=== PATIENT | male | born 1935 | race Caucasian/White ===

== ENCOUNTER 2016-12-23 09:23 | Day surgery (SDC) ==
[2016-06-22 15:37] VITALS: BMI 26.5
[2016-12-23] MEDS ORDERED: LIDOCAINE 1% 20 ML MDV ID ONE (10:09)
[2016-12-23] MEDS ORDERED: LIDOCAINE 1% 20 ML MDV ONE (10:09)
[2016-12-23] MEDS ORDERED: DIPRIVAN 20 ML VIAL IVP ONE (11:00)
[2016-12-23 12:38] VITALS: BP 138/88; TEMP 97.5
--- NOTE | 2016-12-24 09:48 | OP ---
INDICATIONS FOR PROCEDURE: 81-year-old gentleman presents for colonoscopy. He has a history of adenomatous polyps, last colonoscopy 3 years ago. MEDICATIONS: SEE ANESTHESIA NOTES. PROCEDURE: COLONOSCOPY. REPORT: The risks, benefits, alternatives and limitations were discussed in detail with the patient. Informed consent was obtained. After adequate sedation was achieved, digital rectal exam revealed good tone, no masses. The colonoscope was introduced into the rectum and advanced under direct visual guidance to the cecum. The cecum was identified by the appendiceal orifice and IC valve. I then slowly withdrew the scope in a circumferential manner examining the mucosa quite carefully. I looked on the proximal and distal side of folds and flexures as best as possible. I was able to retroflex the scope in the right colon and left colon to increase visualization. The colonic mucosa is unremarkable its entire length including on retroflex view of the anal canal. There was a small non engorged internal hemorrhoid. The prep was adequate. The withdrawal time was 7 minutes and 22 seconds. The patient tolerated the procedure well with stable vital signs and pulse oximetry throughout. IMPRESSION: 1. UNREMARKABLE COLONOSCOPY EXAM. RECOMMENDATIONS: 1. High fiber diet. 2. Office visit as needed. 3. Given his advanced age and health, I recommend future colonoscopies on an as needed only basis. CC: DR. DAVID HOLLOWAY
== END 2016-12-23 12:59 | disposition home or self-care (01) ==
LOC: SURG 09:23
PROVIDERS: ATTEND Internal Medicine Gastroenterology
DX: Z86.010 Personal history of colon polyps (principal); K64.8 Other hemorrhoids

== ENCOUNTER 2018-11-06 14:55 | Inpatient (IN) | payer OTHER ==
[2018-11-06] MEDS ORDERED: DUONEB NEB STA (15:05)
--- NOTE | 2018-11-06 15:08 | ED.PDOC ---
General ED Provider: Dr. JESSICA BINGHAM Chief Complaint: Shortness of Air Stated Complaint: Patient is an 83 year old male who comes to the ER by ambulance with shortness of breath since yesterday Time Seen by Physician: 15:07 Mode of Arrival: Walk-In Information Source: Patient Exam Limitations: No limitations Primary Care Provider: RICO HERNANDEZ Nursing and Triage Documentation Reviewed and Agree: Yes Does patient meet sepsis criteria?: No System Inflammatory Response Syndrome: Not Applicable Sepsis Protocol: For patient's 13 years and over: Temp is 96.8 and below OR 101 and greater Pulse >90 BPM Resp >20/minute Acutely Altered Mental Status Are patient's symptoms suggestive of a new infection, such as: -Pneumonia -Skin, Soft Tissue -Endocarditis -UTI -Bone, Joint Infection -Implantable Device -Acute Abdominal Infection -Wound Infection -Meningitis -Blood Stream Catheter Infection -Unknown Review of Systems - Review Of Systems Constitutional: Reports: No symptoms Eyes: Reports: No symptoms Ears, Nose, Mouth, Throat: Reports: No symptoms Respiratory: Reports: Cough, Short of air, Wheezing Cardiac: Reports: No symptoms GI: Reports: No symptoms : Reports: No symptoms Musculoskeletal: Reports: No symptoms Skin: Reports: No symptoms Neurological: Reports: Anxiety Endocrine: Reports: No symptoms Hematologic/Lymphatic: Reports: No symptoms All Other Systems: Reviewed and Negative Past Medical History - Past Medical History Previously Healthy: Yes Endocrine: Reports: Dyslipidemia Cardiovascular: Reports: Hypertension Respiratory: Reports: None Hematological: Reports: Anemia Gastrointestinal: Reports: None Genitourinary: Reports: None Neuro/Psych: Reports: Anxiety, Depression Musculoskeletal: Reports: Arthritis, Back Pain Cancer: Reports: None Other Pertinent Past Medical History: Sleep Apnea - Surgical History General Surgical History: Reports: None - Family History Family History: Reports: Unknown - Social History Smoking Status: Never smoker Hx Substance Use: No Alcohol Screening: None - Immunizations Tetanus Shot up to Date: No Physical Exam - Physical Exam Appearance: Ill-appearing Ill-appearing: Moderate Pain Distress: None Eyes: URIAH, EOMI Neck: Supple Respiratory: Crackles, Rhonchi, Wheezes Cardiovascular: RRR, Pulses normal, No rub GI/: Soft, Nontender, No masses Musculoskeletal: Normal strength, ROM intact, Edema (3+ on the lower extremities ) Skin: Warm, Dry, Normal color Neurological: Sensation intact, Motor intact, Alert, Oriented Psychiatric: Anxious Interpretation - Radiology Interpretation Radiology Interpretation By: Radiologist Radiology Results: No acute changes (prominent heart size with Mild central interstitial edema verses interitian pneumonitis) Exam Interpreted: Portable CXR Re-Evaluation - Re-Evaluation Time of Re-Evaluation: 19:41 Status: Improved (breathing better ) Vital Signs Stable: Yes Pain Level: none Appearance: NAD Lungs: Other (Less wheezing and Rhonchi) Skin: Warm and Dry Neuro: Alert and Oriented X3 Physician Notification - Case Discussed Physician Notified: Dr Hernandez Time of Notification: 19:42 (Admit to SCU) Critical Care Note - Critical Care Note Total Time (mins): 45 Course - Course Hematology/Chemistry: 11/06/18 15:15 11/06/18 15:15 Orders, Labs, Meds: Lab Review 11/06/18 11/06/18 11/06/18 15:15 15:15 15:15 WBC 7.92 RBC 4.01 L Hgb 11.2 L Hct 33.9 L MCV 84.5 MCH 27.9 MCHC 33.0 RDW Coeff of Cassi 14.6 Plt Count 178 Immature Gran % (Auto) 0.5 Neut % (Auto) 81.3 Lymph % (Auto) 9.2 L Mcduffie % (Auto) 7.2 Eos % (Auto) 1.0 Baso % (Auto) 0.8 Immature Gran # (Auto) 0.0 Neut # (Auto) 6.4 Lymph # (Auto) 0.7 Mcduffie # (Auto) 0.6 Eos # (Auto) 0.1 Baso # (Auto) 0.1 Puncture Site O2 Saturation ABG pH ABG pCO2 ABG pO2 ABG HCO3 ABG Total CO2 ABG Base Excess Amandeep Test O2 Delivery Device Oxygen Liter Flow FiO2 % Sodium 140.5 Potassium 3.27 L Chloride 102.7 Carbon Dioxide 29.9 Anion Gap 11.17 BUN 14.1 Creatinine 1.77 H Estimated GFR (MDRD) 37.00 BUN/Creatinine Ratio 7.96 Glucose 130.4 H Lactic Acid 1.17 Calcium 8.76 Total Bilirubin 0.81 AST 24.1 ALT 9.7 Alkaline Phosphatase 73.5 Total Creatine Kinase 53.1 L Troponin I 0.012 NT-Pro-B Natriuret Pep Total Protein 6.84 Albumin 4.16 Globulin 2.68 Albumin/Globulin Ratio 1.55 Procalcitonin 11/06/18 11/06/18 11/06/18 15:15 15:15 15:30 WBC RBC Hgb Hct MCV MCH MCHC RDW Coeff of Cassi Plt Count Immature Gran % (Auto) Neut % (Auto) Lymph % (Auto) Mcduffie % (Auto) Eos % (Auto) Baso % (Auto) Immature Gran # (Auto) Neut # (Auto) Lymph # (Auto) Mcduffie # (Auto) Eos # (Auto) Baso # (Auto) Puncture Site R rad O2 Saturation 88.0 L ABG pH 7.356 ABG pCO2 46.4 H ABG pO2 58.0 L* ABG HCO3 26.0 ABG Total CO2 27 ABG Base Excess 0 Amandeep Test + O2 Delivery Device Oxygen Liter Flow FiO2 % 21.0 Sodium Potassium Chloride Carbon Dioxide Anion Gap BUN Creatinine Estimated GFR (MDRD) BUN/Creatinine Ratio Glucose Lactic Acid Calcium Total Bilirubin AST ALT Alkaline Phosphatase Total Creatine Kinase Troponin I NT-Pro-B Natriuret Pep 2920.000 H Total Protein Albumin Globulin Albumin/Globulin Ratio Procalcitonin < 0.05 11/06/18 17:33 WBC RBC Hgb Hct MCV MCH MCHC RDW Coeff of Cassi Plt Count Immature Gran % (Auto) Neut % (Auto) Lymph % (Auto) Mcduffie % (Auto) Eos % (Auto) Baso % (Auto) Immature Gran # (Auto) Neut # (Auto) Lymph # (Auto) Mcduffie # (Auto) Eos # (Auto) Baso # (Auto) Puncture Site Rbrach O2 Saturation 98.0 ABG pH 7.397 ABG pCO2 41.3 ABG pO2 99.0 ABG HCO3 25.4 ABG Total CO2 27 ABG Base Excess 1 Amandeep Test + O2 Delivery Device Nc Oxygen Liter Flow 2.00 FiO2 % 28.0 Sodium Potassium Chloride Carbon Dioxide Anion Gap BUN Creatinine Estimated GFR (MDRD) BUN/Creatinine Ratio Glucose Lactic Acid Calcium Total Bilirubin AST ALT Alkaline Phosphatase Total Creatine Kinase Troponin I NT-Pro-B Natriuret Pep Total Protein Albumin Globulin Albumin/Globulin Ratio Procalcitonin Orders Category Date Time Status ABG DRAW REQUEST Routine CARDIO 11/06/18 17:33 Ordered ABG DRAW REQUEST Stat CARDIO 11/06/18 15:06 Completed EKG-(ED ONLY) Stat CARDIO 11/06/18 15:05 Completed NEBULIZER TREATMENT Stat CARDIO 11/06/18 15:06 Completed OXYGEN Routine CARDIO 11/06/18 19:34 Ordered INTAKE & OUTPUT Q8HR CARE 11/06/18 19:34 Ordered VITAL SIGNS Q4HR CARE 11/06/18 19:35 Ordered 2 GRAM SODIUM DIET DIETARY 11/06/18 Breakfast Ordered ED IV/MEDIPORT/POWERPORT .ONCE EMERGENCY 11/06/18 15:05 Active ABG Stat LAB 11/06/18 15:30 Completed ABG Stat LAB 11/06/18 17:33 Completed BLOOD CULTURE (ED ONLY) Stat LAB 11/06/18 15:15 Received CBC W/ AUTO DIFF DAILY@0600 LAB 11/07/18 06:00 Ordered CBC W/ AUTO DIFF DAILY@0600 LAB 11/08/18 06:00 Ordered CBC W/ AUTO DIFF Stat LAB 11/06/18 15:15 Completed COMPREHENSIVE METABOLIC PANEL DAILY@0600 LAB 11/07/18 06:00 Ordered COMPREHENSIVE METABOLIC PANEL DAILY@0600 LAB 11/08/18 06:00 Ordered COMPREHENSIVE METABOLIC PANEL Stat LAB 11/06/18 15:15 Completed CREATINE KINASE Stat LAB 11/06/18 15:15 Completed LACTIC ACID Stat LAB 11/06/18 15:15 Completed PRO-BNP [NT-PROBNP] Stat LAB 11/06/18 15:15 Completed PROCALCITONIN Stat LAB 11/06/18 15:15 Completed TROPONIN I Stat LAB 11/06/18 15:15 Completed 0.9 % Sodium Chloride [Saline Flush] MEDS 11/06/18 15:05 Ordered 1 syr IVF PRN PRN Acetaminophen [Tylenol Arthritis] MEDS 11/06/18 21:00 Ordered 1,300 mg PO BEDTIME Acetaminophen [Tylenol Arthritis] MEDS 11/07/18 09:00 Ordered 650 mg PO DAILY Amlodipine Besylate [Norvasc] MEDS 11/06/18 21:00 Ordered 5 mg PO BID Aspirin [Aspirin Chewable] MEDS 11/07/18 08:00 Ordered 81 mg PO DAILYWM Bisoprolol Fumarate [Zebeta] MEDS 11/07/18 09:00 Ordered 10 mg PO DAILY Carboxymethylcellulose Sodium [Refresh Plus] MEDS 11/06/18 21:00 Ordered 1 each OP QID Clonidine HCl [Catapres] MEDS 11/06/18 21:00 Ordered 0.3 mg PO BID Clopidogrel Bisulfate [Plavix] MEDS 11/07/18 09:00 Ordered 75 mg PO DAILY Enalaprilat Dihydrate [Vasotec IV] MEDS 11/06/18 17:32 Discontinued 1.25 mg IVP ONCE STA Enoxaparin Sodium [Lovenox] MEDS 11/07/18 09:00 Ordered 30 mg SUBCUT DAILY Ferrous Sulfate [Feosol] MEDS 11/06/18 21:00 Ordered 325 mg PO BID Furosemide [Lasix] MEDS 11/06/18 16:36 Discontinued 40 mg IVP ONCE STA Furosemide [Lasix] MEDS 11/07/18 06:30 Ordered 40 mg IVP QDAC Hydralazine HCl [Apresoline] MEDS 11/06/18 20:00 Ordered 50 mg PO Q12H Hydrocodone Bit/Acetaminophen [Watts 5-325] MEDS 11/06/18 19:37 Ordered 1 tab PO TID PRN Ipratropium/Albuterol Neb [Duoneb] MEDS 11/06/18 15:05 Discontinued 1 vial NEB ONCE STA Lovastatin [Lovastatin] MEDS 11/07/18 09:00 Ordered 20 mg PO DAILY Multivit-Minerals/FA/Lycopene [Men's Daily Formula MEDS 11/07/18 09:00 Ordered Capsule] 1 each PO DAILY Ondansetron HCl/Pf [Zofran 4 mg/2 ml] MEDS 11/06/18 19:34 Ordered 4 mg IVP Q6H PRN Potassium Chloride [Klor-Con 10] MEDS 11/07/18 09:00 Ordered 20 meq PO DAILY Sertraline HCl [Zoloft] MEDS 11/07/18 09:00 Ordered 150 mg PO DAILY Tamsulosin HCl [Flomax] MEDS 11/07/18 09:00 Ordered 0.4 mg PO DAILY Valsartan [Diovan] MEDS 11/06/18 21:00 Ordered 160 mg PO BID RESUSCITATION STATUS Routine OTHERS 11/06/18 19:34 Ordered CHEST, 1V AP ONLY Stat RADS 11/06/18 15:05 Completed Medications Generic Name Dose Route Start Last Admin Trade Name Freq PRN Reason Stop Dose Admin Hydrocodone Bitart/Acetaminophen 1 tab 11/06/18 19:37 Watts 5-325 PO TID PRN severe pain Amlodipine Besylate 5 mg 11/06/18 21:00 Norvasc PO BID GAYATRI Aspirin 81 mg 11/07/18 08:00 Aspirin Chewable PO DAILYWM [facility] Clopidogrel Bisulfate 75 mg 11/07/18 09:00 Plavix PO DAILY [facility] Enoxaparin Sodium 30 mg 11/07/18 09:00 Lovenox SUBCUT DAILY [facility] Furosemide 40 mg 11/07/18 06:30 Lasix IVP QDAC [facility] Hydralazine HCl 50 mg 11/06/18 20:00 Apresoline PO Q12H [facility] Non-Formulary Medication 650 mg 11/07/18 09:00 Acetaminophen [Tylenol Arthritis] PO DAILY [facility] Non-Formulary Medication 1,300 mg 11/06/18 21:00 Acetaminophen [Tylenol Arthritis] PO BEDTIME [facility] Non-Formulary Medication 10 mg 11/07/18 09:00 Bisoprolol Fumarate [Zebeta] PO DAILY [facility] Non-Formulary Medication 1 each 11/06/18 21:00 Carboxymethylcellulose Sodium [Refresh Plus] OP QID [facility] Non-Formulary Medication 0.3 mg 11/06/18 21:00 Clonidine Hcl [Catapres] PO BID [facility] Non-Formulary Medication 20 mg 11/07/18 09:00 Lovastatin [Lovastatin] PO DAILY [facility] Non-Formulary Medication 1 each 11/07/18 09:00 Multivit-Minerals/Fa/Lycopene [Men's Daily Formula Capsule] PO DAILY [facility] Non-Formulary Medication 150 mg 11/07/18 09:00 Sertraline Hcl [Zoloft] PO DAILY [facility] Non-Formulary Medication 325 mg 11/06/18 21:00 Ferrous Sulfate [Feosol] PO BID [facility] Non-Formulary Medication 20 meq 11/07/18 09:00 Potassium Chloride [Klor-Con 10] PO DAILY [facility] Ondansetron HCl 4 mg 11/06/18 19:34 Zofran 4 Mg/2 Ml IVP Q6H PRN Nausea / Vomiting Sodium Chloride 1 syr 11/06/18 15:05 Saline Flush IVF PRN PRN To flush IV Tamsulosin HCl 0.4 mg 11/07/18 09:00 Flomax PO DAILY [facility] Valsartan 160 mg 11/06/18 21:00 Diovan PO BID [facility] Discontinued Medications Generic Name Dose Route Start Last Admin Trade Name Freq PRN Reason Stop Dose Admin Albuterol/Ipratropium 1 vial 11/06/18 15:05 11/06/18 15:30 Duoneb NEB 11/06/18 15:06 1 vial ONCE STA Administration Enalaprilat 1.25 mg 11/06/18 17:32 11/06/18 17:56 Vasotec Iv IVP 11/06/18 17:33 1.25 mg ONCE STA Administration Furosemide 40 mg 11/06/18 16:36 11/06/18 17:34 Lasix IVP 11/06/18 16:37 40 mg ONCE STA Administration Vital Signs: Temp Pulse Resp BP Pulse Ox 11/06/18 14:56 99.0 F 72 20 240/105 H 89 L Departure - Departure Time of Disposition: 19:42 Disposition: ADMITTED INPATIENT Discharge Problem: Hypertensive urgency CHF exacerbation Qualifiers: Heart failure type: systolic Qualified Code(s): I50.23 - Acute on chronic systolic (congestive) heart failure Condition: Fair Pt referred to PMD for follow-up: Yes IPMP verified?: No Allergies/Adverse Reactions: Allergies Latex, Natural Rubber Adverse Reaction (Verified 11/06/18 14:59) Rash States he "gets a rash." Home Medications: Ambulatory Orders Aspirin [Aspirin Chewable] 81 mg PO DAILYWM 09/20/13 Bisoprolol Fumarate [Zebeta] 10 mg PO DAILY 09/20/13 Clonidine HCl [Catapres] 0.3 mg PO BID 09/20/13 Ferrous Sulfate [Feosol] 325 mg PO BID 09/20/13 Furosemide [Lasix Tab] 40 mg PO DAILY 09/20/13 Lovastatin 20 mg PO DAILY 09/20/13 Multivit-Minerals/FA/Lycopene [Men's Daily Formula Capsule] 1 each PO DAILY Potassium Chloride [Klor-Con 10] 10 meq PO DAILY 09/20/13 Tamsulosin HCl [Flomax] 0.4 mg PO DAILY 09/20/13 Acetaminophen [Tylenol Arthritis] 1,300 mg PO BEDTIME 04/28/16 Acetaminophen [Tylenol Arthritis] 650 mg PO DAILY 04/28/16 Carboxymethylcellulose Sodium [Refresh Plus] 1 each OP QID 04/28/16 Hydrocodone/Acetaminophen [Watts 5-325 Tablet] 1 tab PO TID PRN 04/28/16 Clopidogrel Bisulfate [Plavix] 75 mg PO DAILY #30 tablet 04/30/16 Amlodipine Besylate [Norvasc] 5 mg PO BID #60 tablet 06/27/16 Hydralazine HCl [Apresoline] 50 mg PO Q12H #60 tablet 06/27/16 Sertraline HCl [Zoloft] 150 mg PO DAILY #30 tablet 06/27/16 Valsartan [Diovan] 160 mg PO BID #60 tablet 06/27/16 Enoxaparin Sodium [Lovenox] 30 mg SQ DAILY 12/23/16 Disposition Discussed With: Patient, Family
--- NOTE | 2018-11-06 16:08 | DI ---
EXAM: CHEST FRONTAL VIEW HISTORY: Cough and shortness of breath. COMPARISON: 04/28/2016 FINDINGS: Prominent heart size is stable. There is central interstitial infiltrate and congestion. No lobar consolidation, visible fluid or pneumothorax. IMPRESSION: 1. Prominent heart size with mild central interstitial edema versus interstitial pneumonitis. Corre late clinically.
[2018-11-06] MEDS ORDERED: LASIX IVP STA (16:36)
[2018-11-06] MEDS ORDERED: VASOTEC IV IVP STA (17:32)
[2018-11-06] MEDS ORDERED: ZOFRAN 4 MG/2 ML IVP PRN (19:34)
[2018-11-06] MEDS ORDERED: NORCO 5-325 PO PRN (19:37)
[2018-11-06] MEDS ORDERED: APRESOLINE PO SCH (20:00)
[2018-11-06 20:54] VITALS: BMI 30.9
[2018-11-06] MEDS ORDERED: NON-FORMULARY MEDICATION (Ferrous Sulfate [Feosol] 325 MG) PO SCH (21:00)
[2018-11-06] MEDS ORDERED: ACETAMINOPHEN 1300 MG PO SCH (21:00)
[2018-11-06] MEDS ORDERED: CLONIDINE HCL 0.3 MG PO SCH (21:00)
[2018-11-06] MEDS ORDERED: CARBOXYMETHYLCELLULOSE SODIUM OP SCH (21:00)
[2018-11-06] MEDS ORDERED: CATAPRES ONE (22:34)
[2018-11-06] MEDS: DIOVAN PO SCH (23:07)
[2018-11-06] MEDS: NORVASC PO SCH (23:07)
[2018-11-07] MEDS: LASIX IVP SCH (06:22)
[2018-11-07] MEDS ORDERED: LASIX IVP SCH (06:30)
[2018-11-07] MEDS ORDERED: K-DUR PO SCH (08:00)
[2018-11-07] MEDS: ARTIFICIAL TEARS OPTH SOL OP SCH ×4 (08:52→21:19)
[2018-11-07] MEDS: NORVASC PO SCH (08:53)
[2018-11-07] MEDS: ASPIRIN CHEWABLE PO SCH (08:53)
[2018-11-07] MEDS: DIOVAN PO SCH ×2 (08:53→21:18)
[2018-11-07] MEDS: FLOMAX PO SCH (08:53)
[2018-11-07] MEDS: ZEBETA PO SCH (08:53)
[2018-11-07] MEDS: MEVACOR PO SCH (08:54)
[2018-11-07] MEDS: FERROUS SULFATE PO SCH ×2 (08:54→21:18)
[2018-11-07] MEDS: PLAVIX PO SCH (08:54)
[2018-11-07] MEDS: TYLENOL PO SCH ×2 (08:54→21:18)
[2018-11-07] MEDS: MULTIVITAMIN TABLET PO SCH (08:55)
[2018-11-07] MEDS: LOVENOX SUBCUT SCH (08:55)
[2018-11-07] MEDS ORDERED: LYCOPENE PO SCH (09:00)
[2018-11-07] MEDS ORDERED: LOVENOX SUBCUT SCH (09:00)
[2018-11-07] MEDS ORDERED: NON-FORMULARY MEDICATION (Potassium Chloride [Klor-Con 10] 20 MEQ) PO SCH (09:00)
[2018-11-07] MEDS ORDERED: ZOLOFT PO SCH (09:00)
[2018-11-07] MEDS ORDERED: MULTIVIT MINERALS PO SCH (09:00)
[2018-11-07] MEDS ORDERED: CATAPRES PO SCH (09:00)
[2018-11-07] MEDS ORDERED: [UNRECOGNIZED DRUG - OTHER] PO SCH (09:00)
[2018-11-07] MEDS ORDERED: NON-FORMULARY MEDICATION (Potassium Chloride [Klor-Con 10] 10 MEQ) PO SCH (09:00)
[2018-11-07] MEDS ORDERED: APRESOLINE PO SCH (09:00)
[2018-11-07] MEDS ORDERED: NON-FORMULARY MEDICATION (Acetaminophen [Tylenol Arthritis] 650 MG) PO SCH (09:00)
[2018-11-07] MEDS ORDERED: LOVASTATIN 20 MG PO SCH (09:00)
[2018-11-07] MEDS ORDERED: BISOPROLOL FUMARATE 10 MG PO SCH (09:00)
[2018-11-07] MEDS ORDERED: NON-FORMULARY MEDICATION (Sertraline Hcl [Zoloft] 150 MG) PO SCH (09:00)
[2018-11-07] MEDS: K-DUR PO SCH ×2 (09:39→17:41)
[2018-11-07] MEDS ORDERED: NON-FORMULARY MEDICATION (Cetirizine Hcl [Zyrtec] 10 MG) PO PRN (12:43)
[2018-11-07] MEDS ORDERED: CARBOXYMETHYLCELLULOSE SODIUM OP PRN (12:43)
[2018-11-07] MEDS ORDERED: VASOTEC IV IVP STA (18:20)
[2018-11-07] MEDS ORDERED: MINOXIDIL PO STA (18:21)
[2018-11-07] MEDS ORDERED: OMEGA-3 FISH OIL ONE (20:53)
[2018-11-07] MEDS ORDERED: NON-FORMULARY MEDICATION (Omega-3 Fatty Acids/Fish Oil [Fish Oil 1,000 Mg Capsule] 1,000 M PO SCH (21:00)
[2018-11-07] MEDS: CATAPRES PO SCH (21:17)
[2018-11-07] MEDS: MINOXIDIL PO SCH (21:18)
[2018-11-08] MEDS ORDERED: NORVASC ONE (00:58)
[2018-11-08] MEDS ORDERED: MORPHINE 4 MG/ML VIAL ONE (00:59)
[2018-11-08] MEDS ORDERED: LASIX ONE (00:59)
[2018-11-08] MEDS: LASIX IVP STA ×2 (01:00→01:03)
[2018-11-08] MEDS ORDERED: DUONEB NEB STA (01:00)
[2018-11-08] MEDS: MORPHINE 4 MG/ML SYRINGE IVP STA ×2 (01:03)
[2018-11-08] MEDS ORDERED: VASOTEC IV IVP STA ×2 (01:03→01:56)
[2018-11-08] MEDS ORDERED: NORVASC PO STA ×2 (01:05)
[2018-11-08] MEDS ORDERED: MORPHINE 2 MG/ML SYRINGE ONE ×2 (01:30→02:13)
[2018-11-08] MEDS: CARDENE-NACL 20 MG/200 ML SOLN 20 MG in PREMIX 200ML 0.86% SODIUM CHLORIDE 1 BAG IV SCH ×5 (01:40→18:44)
[2018-11-08] MEDS ORDERED: CARDENE-NACL 20 MG/200 ML SOLN 200 ML IV ONE ×4 (01:42→13:56)
[2018-11-08] MEDS ORDERED: SOLU-CORTEF 250 MG IVP STA ×2 (01:42)
[2018-11-08] MEDS ORDERED: SOLU-CORTEF 250 MG ONE (01:51)
[2018-11-08] MEDS ORDERED: MORPHINE 2 MG/ML SYRINGE IVP STA (02:08)
--- NOTE | 2018-11-08 03:04 | ED.PDOC ---
Procedures - IV/Art Line Insertion Location: lt radial Type of Line: Arterial Line Invasive Line/IV Catheter Gauge: 22 Number of Attempts: 1 Blood Return Positive: Yes Invasive Line/IV Flushes Without Difficulty: Yes (art line for invasive press) Conscious Sedation - Pre-op Assessment Weight: 201 lb 8.04 oz Surgical History: NO - Medical History Past Medical History: Hypertension, High Lipids Other History: SLEEP APNEA - Physical Exam Heart Rate/Rhythm: Regular Rhythm
[2018-11-08] MEDS ORDERED: DUONEB NEB SCH (06:00)
[2018-11-08] MEDS ORDERED: CLARITIN PO PRN (07:08)
[2018-11-08] MEDS ORDERED: ARTIFICIAL TEARS OPTH SOL OP PRN (07:10)
[2018-11-08] MEDS: LASIX IVP SCH (07:11)
[2018-11-08] MEDS ORDERED: ROCEPHIN 1 GM in SODIUM CHLORIDE 50 ML IV STA (08:28)
[2018-11-08] MEDS ORDERED: NON-FORMULARY MEDICATION (Sertraline Hcl [Zoloft] 200 MG) PO SCH (09:00)
[2018-11-08] MEDS ORDERED: NON-FORMULARY MEDICATION (Cholecalciferol (Vitamin D3) [Vitamin D3] 2,000 UNITS) PO SCH (09:00)
[2018-11-08] MEDS: ZOLOFT PO SCH (09:58)
[2018-11-08] MEDS: K-DUR PO SCH ×2 (09:59→18:46)
[2018-11-08] MEDS: ASPIRIN CHEWABLE PO SCH (09:59)
[2018-11-08] MEDS: ZEBETA PO SCH (09:59)
[2018-11-08] MEDS: VITAMIN D PO SCH (09:59)
[2018-11-08] MEDS: PLAVIX PO SCH (09:59)
[2018-11-08] MEDS: CATAPRES PO SCH ×2 (09:59→21:04)
[2018-11-08] MEDS: MEVACOR PO SCH (09:59)
[2018-11-08] MEDS: TYLENOL PO SCH ×2 (09:59→21:04)
[2018-11-08] MEDS: APRESOLINE PO SCH (10:00)
[2018-11-08] MEDS: FERROUS SULFATE PO SCH ×2 (10:00→21:05)
[2018-11-08] MEDS: MINOXIDIL PO SCH ×2 (10:00→21:04)
[2018-11-08] MEDS ORDERED: LASIX IVP ONE (10:00)
[2018-11-08] MEDS: MULTIVITAMIN TABLET PO SCH (10:00)
[2018-11-08] MEDS: DIOVAN PO SCH ×2 (10:00→21:03)
[2018-11-08] MEDS: FLOMAX PO SCH (10:00)
[2018-11-08] MEDS: LOVENOX SUBCUT SCH (10:01)
[2018-11-08] MEDS: SOLU-MEDROL 125 MG IVP SCH ×3 (10:01→21:02)
[2018-11-08] MEDS: ARTIFICIAL TEARS OPTH SOL OP SCH ×4 (10:02→21:05)
--- NOTE | 2018-11-08 10:33 | PCM.PROG ---
Attending Provider: ATTENDING PROVIDER: Dr. RICO HERNANDEZ This patient is seen with Karyn Del Castillo, Nurse Practitioner. DATE OF SERVICE: 11/08/18 SUBJECTIVE: This 83 year old WHITE/ M was hospitalized 11/06/18. The patient is lying in bed. He is currently wearing BIPAP, in no acute distress. He is alert and oriented. He had episode this morning of unresponsiveness, shortness of breath, severe hypertension. REVIEW OF SYSTEMS: CONSTITUTIONAL: Weakness. No night sweats. No fatigue, malaise, lethargy. No fever or chills. HEENT: Eyes: No visual changes. No eye pain. No eye discharge. ENT: No runny nose. No epistaxis. No sinus pain. No odynophagia. No congestion. RESPIRATORY: Positive for cough, rhonchi and shortness of breath. No hemoptysis. No shortness of breath. CARDIOVASCULAR: No angina symptoms. No CHF symptoms. No atypical chest pain for CAD. No palpitations. No orthopnea.. GASTROINTESTINAL: Abdominal distention. No abdominal pain. No nausea or vomiting. No diarrhea or constipation. No hematemesis. No hematochezia. GENITOURINARY: Catheter in place. No urgency. No frequency. No dysuria. No hematuria. No obstructive symptoms. No discharge. No pain. No significant abnormal bleeding. MUSCULOSKELETAL: No musculoskeletal pain; no joint swelling. NEUROLOGICAL: Awake, alert, oriented to time, place and person. No headache. No neck pain. No syncope. No seizures. No dizziness. PSYCHIATRIC: Not anxious. No depression. No suicidal thoughts. No homicidal thoughts. SKIN: No rash. No lesions. No wounds. ENDOCRINE: No unexplained weight loss. No weight gain. HEMATOLOGIC/LYMPHATIC: No anemia. No purpura. No petechiae. No prolonged or excessive bleeding. No palpable lymph nodes. PHYSICAL EXAMINATION: GENERAL: The patient is awake, alert and oriented, lying/sitting in bed in no distress. VITAL SIGNS: Temperature 98.4 F, Pulse 69, Respiratory Rate 22, BP 186/77, Pulse Ox 97% HEENT: Head normocephalic, atraumatic. Eyes: Extraocular muscles are intact. Pupils are equal, round and reactive to light and accommodation. Ears: No lesions. Nose appeared normal. Throat: No exudate or erythema. NECK: Supple. No JVD, no carotid bruit. No lymphadenopathy or thyromegaly. LUNGS: Diminished breath sounds with bilateral rhonchi. Percussion note normal. Chest symmetrical. HEART: S1, S2, no S3. No murmurs. No cyanosis or clubbing. No ascites. Pulses: Dorsalis pedis and posterior tibial pulses +1 to +2 both sides. ABDOMEN: Abdominal distention, tympnaic. Non-tender. Bowel sounds active. No CVA tenderness. No mass felt. EXTREMITIES: Trace bilateral lower extremity edema. Full range of motion of all extremities, equal. NEUROLOGIC: No focal deficit. Cranial nerves II through XII are grossly intact. No headache, no double vision or headache. SKIN: Not dry. Intact. Turgor-normal. LYMPHATIC: No palpable lymph nodes/no lymphedema. MUSCULOSKELETAL: Normal joints with no swelling. Muscle tone is normal. LAB REVIEW: 11/08/18 04:30 11/08/18 04:30 11/08/18 04:30: Sodium 142.3, Potassium 3.75, Chloride 103.8, Carbon Dioxide 28.0, Anion Gap 14.25, BUN 17.2, Creatinine 2.40 H D, Estimated GFR (MDRD) 26.00 , BUN/Creatinine Ratio 7.16, Glucose 199.0 H D, Calcium 8.48, Total Bilirubin 0.62, AST 41.7, ALT 15.8, Alkaline Phosphatase 83.1, Total Protein 7.25, Albumin 4.38, Globulin 2.87, Albumin/Globulin Ratio 1.52 11/08/18 04:30: WBC 21.05 H D, RBC 4.25 L, Hgb 11.6 L, Hct 37.2 L D, MCV 87.5, MCH 27.3, MCHC 31.2 L, RDW Coeff of Cassi 14.7, Plt Count 294 D, Immature Gran % (Auto) 1.5, Neut % (Auto) 82.0, Lymph % (Auto) 4.0 L, Gaines % (Auto) 11.9 H, Eos % (Auto) 0.1, Baso % (Auto) 0.5, Immature Gran # (Auto) 0.3, Neut # (Auto) 17.3 H, Lymph # (Auto) 0.9, Gaines # (Auto) 2.5 H, Eos # (Auto) 0.0, Baso # (Auto) 0.1 01/07/19 02:23: Puncture Site Art line, O2 Saturation 90.0 L, ABG pH 7.152 L*, ABG pCO2 78.3 H, ABG pO2 78.0 L, ABG HCO3 27.4 H, ABG Total CO2 30 H, ABG Base Excess -1, Amandeep Test +, O2 Delivery Device Bipap, FiO2 % 70.0 11/08/18 01:14: Puncture Site Art line, O2 Saturation 89.0 L, ABG pH 6.993 L*, ABG pCO2 121.9 H, ABG pO2 89.0, ABG HCO3 29.6 H, ABG Total CO2 33 H, ABG Base Excess -2, Amandeep Test +, O2 Delivery Device Nrb, Oxygen Liter Flow 15.00, FiO2 % 100.0 11/08/18 01:00: Puncture Site Lbrach, O2 Saturation 93.0 L, ABG pH 7.021 L*, ABG pCO2 111.5 H, ABG pO2 102.0 H, ABG HCO3 28.9 H, ABG Total CO2 32 H, ABG Base Excess -2, Amandeep Test +, O2 Delivery Device Venti, Oxygen Liter Flow 10.00 , FiO2 % 40.0 ASSESSMENT: 1. ACUTE RESPIRATORY FAILURE 2. ACUTE CHF 3. PNEUMONITIS 4. ACUTE ON CHRONIC KIDNEY DISEASE 5. HYPERTENSION PLAN: 1. Continue Cardene drip - goal blood pressure less than 160/90 2. UA 3. D/C Duoneb 4. Xopenex t.i.d. 5. Chest x-ray, abdominal x-ray 6. IV Solu-Cortef 125 mg now and then q8hr Plan and coordination of the patient's care discussed in the presence of [employer] Offbearer and nurse. CONDITION: Stable SCRIBED BY: Jaison QUINTANILLAist scribed while in presence of service performed by Dr. Hernandez/Karyn Del Castillo, KATHI on 11/08/18 ([id number])
--- NOTE | 2018-11-08 11:16 | DI ---
Exam: Single view of the chest. Comparison: 11/06/2018. Reason for exam: Short of breath. FINDINGS: Similar appearing patchy airspace opacities in the lung bases. The cardiac silhouette rem ains mildly prominent in size. No pneumothorax is seen. Impression: Similar appearing prominence of the interstitial lung markings. Imaging findings can be seen with in flammation and infection. Persistent cardiomegaly.
--- NOTE | 2018-11-08 11:46 | DI ---
Exam: Single view of the abdomen. Comparison: CT abdomen pelvis performed 08/05/2009. Reason for exam: Distension. FINDINGS: Nonspecific, nonobstructive bowel gas pattern with a large amount of stool seen in the mayito cending colon and rectosigmoid. The imaged osseous structures are not well evaluated secondary to korin dy habitus and technique. Impression: Limited evaluation secondary to technique and body habitus with a large stool burden sug gesting constipation/impaction.
--- NOTE | 2018-11-08 14:10 | ECHO2D ---
Date of Exam: 11/08/17 Ordering Physician: DR. RICO HERNANDEZ Room #: [id number] Reason for Echo: CHF M-Mode Normal Adult Results LV Dimensions Normal Adult Results AoV Opening excursions >1.6 >1.6 LVEDD-base- 3.5-5.8 4.7 Ao root dimensions 2.0-3.7 3.3 LVESD-base- 3.1-4.6 L. Atrium dimensions 1.9-3.8 3.6 Post. Wall thickness 0.8-1.1 1.1 IV septum (thickness) 0.7-1.2 1.2 Post. Wall excursion 0.72-1.3 NORMAL Septal motion NORMAL Systolic motion R. Ventricular cavity 1.5-2.0 3.0 LVEF 60% Paradoxical septal wall motion NORMAL 2-D : RIGHT VENTRICLE CAVITY ENLARGEMENT, NORMAL LEFT VENTRICULAR CONTRACTILITY- -NO EFFUSION, NO THROMBUS, NORMAL VALVES M-MODE: MV: NORMAL AV: NORMAL TV: NORMAL PV: CHAMBER SIZE: ENLARGED RIGHT VENTRICLE CAVITY WALL MOTION: NORMAL PERICARDIUM: NORMAL INTERPRETATION: 1. DIFFICULT STUDY (RESTLESS/ON BIPAP/ RESPIRATORY DISTRESS) 2. BORDERLINE LEFT VENTRICULAR HYPERTROPHY 3. ENLARGED RIGHT VENTRICLE CAVITY 4. NORMAL LEFT VENTRICULAR CONTRACTILITY 5. NORMAL VALVES MTDD
[2018-11-08] MEDS: XOPENEX 1.25 MG NEB SCH ×2 (14:35→19:50)
--- NOTE | 2018-11-08 19:54 | ED.PDOC ---
Procedures - IV/Art Line Insertion Location: Rt wrist Type of Line: Peripheral IV Invasive Line/IV Catheter Gauge: 22 Number of Attempts: 1 (art line flat waveform , unable to flush , inaccurate readings) Blood Return Positive: Yes Invasive Line/IV Flushes Without Difficulty: Yes (also reposition art line to get waveform and accurate BP, flushes well) Conscious Sedation - Pre-op Assessment Weight: 201 lb Surgical History: NO - Medical History Past Medical History: Hypertension, High Lipids Other History: SLEEP APNEA - Physical Exam Heart Rate/Rhythm: Regular Rhythm
[2018-11-08] MEDS: OMEGA-3 FISH OIL PO SCH (21:05)
[2018-11-09] MEDS: CARDENE-NACL 20 MG/200 ML SOLN 20 MG in PREMIX 200ML 0.86% SODIUM CHLORIDE 1 BAG IV SCH ×6 (00:19→22:37)
[2018-11-09] MEDS: XOPENEX 1.25 MG NEB SCH ×3 (04:44→23:21)
[2018-11-09] MEDS: LASIX IVP SCH (05:34)
[2018-11-09] MEDS: SOLU-MEDROL 125 MG IVP SCH ×3 (05:34→22:36)
[2018-11-09] MEDS: CATAPRES PO SCH ×2 (09:20→22:36)
[2018-11-09] MEDS: ZOLOFT PO SCH (09:20)
[2018-11-09] MEDS: ROCEPHIN 1 GM in SODIUM CHLORIDE 50 ML IV SCH (09:20)
[2018-11-09] MEDS: FERROUS SULFATE PO SCH ×2 (09:21→22:36)
[2018-11-09] MEDS: MINOXIDIL PO SCH ×2 (09:21→22:36)
[2018-11-09] MEDS: APRESOLINE PO SCH (09:21)
[2018-11-09] MEDS: FLOMAX PO SCH (09:22)
[2018-11-09] MEDS: ZEBETA PO SCH (09:22)
[2018-11-09] MEDS: DIOVAN PO SCH ×2 (09:22→22:36)
[2018-11-09] MEDS: VITAMIN D PO SCH (09:23)
[2018-11-09] MEDS: TYLENOL PO SCH ×2 (09:23→22:35)
[2018-11-09] MEDS: MEVACOR PO SCH (09:23)
[2018-11-09] MEDS: MULTIVITAMIN TABLET PO SCH (09:24)
[2018-11-09] MEDS: K-DUR PO SCH ×2 (09:24→19:11)
[2018-11-09] MEDS: ASPIRIN CHEWABLE PO SCH (09:24)
[2018-11-09] MEDS: ARTIFICIAL TEARS OPTH SOL OP SCH ×4 (09:24→22:37)
[2018-11-09] MEDS: PLAVIX PO SCH (09:25)
[2018-11-09] MEDS: LOVENOX SUBCUT SCH (09:25)
[2018-11-09] MEDS ORDERED: ALBUTEROL 0.083% NEB NEB STA (09:43)
[2018-11-09] MEDS ORDERED: MILK OF MAGNESIA PO STA (09:48)
[2018-11-09] MEDS ORDERED: DULCOLAX RC STA (09:48)
--- NOTE | 2018-11-09 10:02 | PCM.PROG ---
Attending Provider: ATTENDING PROVIDER: Dr. RICO HERNANDEZ DATE OF SERVICE: 11/09/18 SUBJECTIVE: This 83 year old WHITE/ M was hospitalized 11/06/18 with acute CHF, severe hypertension. The patient's condition has improved remarkably. He is feeling better, talkative and oriented times four. REVIEW OF SYSTEMS: CONSTITUTIONAL: No night sweats. No fatigue, malaise, lethargy. No fever or chills. HEENT: Eyes: No visual changes. No eye pain. No eye discharge. ENT: No runny nose. No epistaxis. No sinus pain. No odynophagia. No congestion. RESPIRATORY: No cough, no congestion. No hemoptysis. No shortness of breath. CARDIOVASCULAR: No angina symptoms. No CHF symptoms. No atypical chest pain for CAD. No palpitations. No orthopnea.. GASTROINTESTINAL: No abdominal pain. No nausea or vomiting. No diarrhea or constipation. No hematemesis. No hematochezia. GENITOURINARY: No urgency. No frequency. No dysuria. No hematuria. No obstructive symptoms. No discharge. No pain. No significant abnormal bleeding. MUSCULOSKELETAL: No musculoskeletal pain; no joint swelling. NEUROLOGICAL: Awake, alert, oriented to time, place and person. No headache. No neck pain. No syncope. No seizures. No dizziness. PSYCHIATRIC: Not anxious. No depression. No suicidal thoughts. No homicidal thoughts. SKIN: No rash. No lesions. No wounds. ENDOCRINE: No unexplained weight loss. No weight gain. HEMATOLOGIC/LYMPHATIC: No anemia. No purpura. No petechiae. No prolonged or excessive bleeding. No palpable lymph nodes. PHYSICAL EXAMINATION: GENERAL: The patient is awake, alert and oriented, lying in bed in no distress. VITAL SIGNS: Temperature 98.5 F, Pulse 66, Respiratory Rate 22, BP 124/59, Pulse Ox 94% HEENT: Head normocephalic, atraumatic. Eyes: Extraocular muscles are intact. Pupils are equal, round and reactive to light and accommodation. Ears: No lesions. Nose appeared normal. Throat: No exudate or erythema. NECK: Supple. No JVD, no carotid bruit. No lymphadenopathy or thyromegaly. LUNGS: Decreased breath sounds, few creps at the bases. No ascites. Percussion note normal. Chest symmetrical. HEART: S1, S2, no S3. No murmurs. No cyanosis or clubbing. No ascites. Pulses: Dorsalis pedis and posterior tibial pulses +1 to +2 both sides. ABDOMEN: Soft. Non-tender. Bowel sounds active. No CVA tenderness. No mass felt. EXTREMITIES: 1+ pitting edema, better than before. Full range of motion of all extremities, equal. NEUROLOGIC: No focal deficit. Cranial nerves II through XII are grossly intact. No headache, no double vision or headache. SKIN: Warm and dry. Intact. Turgor-normal. LYMPHATIC: No palpable lymph nodes/no lymphedema. MUSCULOSKELETAL: Normal joints with no swelling. Muscle tone is normal. LAB REVIEW: 11/09/18 04:20 11/09/18 04:20 11/09/18 07:00: Puncture Site R rad, O2 Saturation 96.0, ABG pH 7.386, ABG pCO2 43.0, ABG pO2 85.0, ABG HCO3 25.8, ABG Total CO2 27, ABG Base Excess 1, Amandeep Test +, O2 Delivery Device Bipap, FiO2 % 35.0 11/09/18 04:20: Sodium 140.8, Potassium 3.55, Chloride 104.2, Carbon Dioxide 30.2 H, Anion Gap 9.95, BUN 33.3 H, Creatinine 3.02 H D, Estimated GFR (MDRD) 20.00, BUN/Creatinine Ratio 11.02, Glucose 170.7 H, Calcium 8.43, Total Bilirubin 0.44, AST 36.0, ALT 10.6, Alkaline Phosphatase 54.4 L D, Total Protein 5.76 L, Albumin 3.24 L, Globulin 2.52, Albumin/Globulin Ratio 1.28 11/09/18 04:20: WBC 11.08 H D, RBC 3.23 L, Hgb 8.9 L, Hct 27.4 L D, MCV 84.8, MCH 27.6, MCHC 32.5, RDW Coeff of Cassi 14.9 H, Plt Count 164 D, Immature Gran % (Auto) 0.9, Neut % (Auto) 93.4, Lymph % (Auto) 3.3 L, [place] % (Auto) 2.3, Eos % ( Auto) 0.0, Baso % (Auto) 0.1, Immature Gran # (Auto) 0.1, Neut # (Auto) 10.3 H, Lymph # (Auto) 0.4 L, [place] # (Auto) 0.3 L, Eos # (Auto) 0.0, Baso # (Auto) 0.0 11/08/18 14:05: Puncture Site Art line, O2 Saturation 88.0 L, ABG pH 7.331 L, ABG pCO2 47.1 H, ABG pO2 59.0 L*, ABG HCO3 24.9, ABG Total CO2 26, ABG Base Excess -1, Amandeep Test +, O2 Delivery Device Nc, Oxygen Liter Flow 3.00 11/08/18 09:55: Urine Color Yellow, Urine Clarity Slightly, Urine pH 5.0, Ur Specific [place] 1.020, Urine Protein 3+, Urine Glucose (UA) Negative, Urine Ketones Negative, Urine Blood 3+, Urine Nitrite Negative, Urine Bilirubin 1+, Urine Urobilinogen 0.2, Ur Leukocyte Esterase 1+, Urine Microscopic RBC 20-30, Urine Microscopic WBC 5-10, Ur Squamous Epith Cells 2-5, Amorphous Sediment 2+, Urine Bacteria 2+, Granular Casts 2-5 11/08/18 08:35: Puncture Site Art line, O2 Saturation 98.0, ABG pH 7.305 L, ABG pCO2 53.4 H, ABG pO2 121.0 H, ABG HCO3 26.6 H, ABG Total CO2 28, ABG Base Excess 0, Amandeep Test +, O2 Delivery Device Bipap, FiO2 % 70.0 ASSESSMENT: 1. Acute CHF/acute respiratory failure/severe hypertension, all under control. 2. The patient's problem is he has has acute renal failure and chronic kidney disease from aggressive diuretic therapy; also from severe hypertension. 3. Status post CVA. 4. Severe anemia. PLAN: 1. ABGs today pH 7.36, p02 85, pc02 43, 96% saturation on 35% BIPAP. At present time he is on 3L of cannula. Condition has improved remarkably. 2. Will give slow IV fluids, watch for fluid overload. 3. Will give Fleet enema and MOM p.o. 4. Regular diet. 5. 50 cc IV fluid D5 1/2 NS per hour with 40 mEq KCL. Plan and coordination of the patient's care discussed in the presence of Air Conditioning Unit Assembler and nurse. CONDITION: Stable SCRIBED BY: JULISSA OVIEDO, Manager Category scribed while in presence of service performed by Dr. RICO HERNANDEZ on 11/09/18 ([id number])
[2018-11-09] MEDS ORDERED: MILK OF MAGNESIA ONE (19:02)
[2018-11-09] MEDS: OMEGA-3 FISH OIL PO SCH (22:36)
[2018-11-10] MEDS: D5%-1/2NS-KCL 40 MEQ/L IV SOL 1,000 ML IV SCH ×3 (02:09→19:06)
[2018-11-10] MEDS: CARDENE-NACL 20 MG/200 ML SOLN 20 MG in PREMIX 200ML 0.86% SODIUM CHLORIDE 1 BAG IV SCH ×4 (03:52→18:20)
[2018-11-10] MEDS: XOPENEX 1.25 MG NEB SCH ×3 (04:58→19:50)
[2018-11-10] MEDS: LASIX IVP SCH (06:03)
[2018-11-10] MEDS: SOLU-MEDROL 125 MG IVP SCH ×2 (06:03→20:24)
[2018-11-10] MEDS ORDERED: D5%-1/2NS-KCL 20 MEQ/L IV SOL 1,000 ML IV ONE (09:10)
[2018-11-10] MEDS: ATIVAN PO PRN ×2 (09:13→20:24)
--- NOTE | 2018-11-10 09:14 | HP ---
DATE OF SERVICE: 11/06/18 REASON FOR HOSPITALIZATION/HISTORY OF PRESENT ILLNESS: 83 year old white male who presented to the emergency room complaining of shortness of breath and coughing. PAST MEDICAL HISTORY: Chronic kidney disease Dyslipidemia Hypertension Anemia Anxiety Depression Polyarthritis Chronic back pain Sleep apnea Hypertension Coronary artery disease LVH BPH PAST SURGICAL HISTORY: Unknown REVIEW OF SYSTEMS: CONSTITUTIONAL: No night sweats. No fatigue, malaise, lethargy. No fever or chills. HEENT: Eyes: No visual changes. No eye pain. No eye discharge. ENT: No runny nose. No epistaxis. No sinus pain. No sore throat. No odynophagia. No ear pain. No congestion. RESPIRATORY: Cough, no congestion. No hemoptysis. Shortness of breath. Wheezing. CARDIOVASCULAR: No angina symptoms. No CHF symptoms. No atypical chest pain for CAD. No palpitations. No PND. No orthopnea. GASTROINTESTINAL: No abdominal pain. No nausea or vomiting. No diarrhea or constipation. No hematemesis. No hematochezia. GENITOURINARY: No urgency. No frequency. No dysuria. No hematuria. No obstructive symptoms. No discharge. No pain. No significant abnormal bleeding. MUSCULOSKELETAL: No musculoskeletal pain. No joint swelling. No arthritis. NEUROLOGICAL: No headache. No neck pain. No syncope. No seizures. No dizziness. PSYCHIATRIC: Anxious. No depression. No suicidal thoughts. No homicidal thoughts. SKIN: No rash. No lesions. No wounds. ENDOCRINE: No unexplained weight loss. No weight gain. HEMATOLOGIC/LYMPHATIC: No anemia. No purpura. No petechiae. No prolonged or excessive bleeding. No palpable lymph nodes. PERSONAL/FAMILY/SOCIAL HISTORY: He is nonsmoker, and lives alone. No alcohol or illicit drug use. His daughter lives nearby and takes very good care of him. MEDICATIONS: Flomax 0.4mg PO bedtime Feosol 325mg Po twice a day Lovastatin 20mg PO 1700 Catapres 0.4mg PO bedtime Zebeta 10mg PO bedtime Multivitamin PO daily Aspirin 81mg PO daily Lasix 40mg PO daily Refresh Plus 1 each OP four times a day Tylenol 650mg PO daily Tylenol 1,300mg PO twice a day Fish Oil 1,000mg PO bedtime Refresh Celluvisc on drop OP 3-4 times daily PRN Zyrtec 10mg Po daily PRN Hydralazine HCL 50mg PO daily Zoloft 200mg PO daily Minoxidil 2.5mg PO twice a day Vitamin D3 2,000 units PO daily ALLERGIES: Latex Natural Rubber PHYSICAL EXAMINATION: GENERAL: The patient is ill appearing. The patient alert and oriented times three. VITAL SIGNS: Temperature 99, heart rate 72, respiratory rate 20, blood pressure 140/105, pulse ox 89% on room air. HEENT: Head normocephalic, atraumatic. Eyes: Extraocular muscles are intact. Pupils are equal, round and reactive to light and accommodation. Ears: No lesions. Nose appeared normal. Throat: No exudate or erythema. NECK: Supple. No JVD, no carotid bruit. No lymphadenopathy or thyromegaly. LUNGS: Extremely diminished breath sounds with bilateral Rhonchi. Rales at bases. Clear to auscultation. Percussion note normal. Chest symmetrical. HEART: S1, S2, no S3. No murmurs. No cyanosis or clubbing. No ascites. Pulses: Dorsalis pedis and posterior tibial pulses +1 to +2 bilaterally. ABDOMEN: Soft. Nontender. Bowel sounds active. No CVA tenderness. No mass felt. EXTREMITIES: Trace lower extremity leg edema. Full range of motion of all extremities, equal. NEUROLOGIC: No focal deficit. Cranial nerves II through XII are grossly intact. No headache, no double vision or headache. SKIN: Not dry. Intact. Turgor - normal. LYMPHATIC: No palpable lymph nodes/no lymphedema. MUSCULOSKELETAL: Normal joints with no swelling. Muscle tone is normal. LABS: WBC 7.92, hgb 11..2, hct 33.9, plt count 178, sodium 140, potassium 3.2, BUN 14 , Creatinine 1.77, glucose 130, AST 24, ALT 9.7, Alkaline Phos 73, Total CK 53, Troponin less than 0.01, BNP 2,920, ABG's on room air O2 sat 88, pH 7.356, pCo2 46.4, pO2 58, bicarb 26, total CO2 27. CT of the chest shows prominent heart size with mild central interstitial edema versus interstitial pneumonitis. ASSESSMENT: 1. Hypertensive emergency 2. Acute systolic congestive heart failure 3. Acute on chronic renal failure 4. Acute pneumonitis PLAN: 1. Will admit to the special care unit 2. CBC and CMP daily 3. 40mg IV Lasix now 4. Vasotec 1.25mg IV now 5. Start Xopenex NEBS treatment Q 6 hours scheduled. 6. Continue all of his home medications 7. O2 at 2 liters with repeat ABG's in 30 minutes 8. Low sodium diet Will follow closely. TIME SPENT: More than 70 minutes. MTDD
--- NOTE | 2018-11-10 09:21 | PN ---
DATE OF SERVICE: 11/06/18 SUBJECTIVE: The patient was seen and examined in CCU bed 3. The patient was hospitalized with shortness of air along with severe hypertension. The patient on further questioning has cough, congestion treated with antibiotics as an outpatient for past couple of weeks. On chest x-ray the patient showed pulmonary congestion. The patient was given breathing treatment after that he received IV Lasix and Solu-Cortef, Solu-Medrol, Vasotec IV was also given. The patient's condition has improved. Blood pressure systolic last recorded was 240/105. REVIEW OF SYSTEMS: CONSTITUTIONAL: No night sweats. No fatigue, malaise, lethargy. No fever or chills. HEENT: Eyes: No visual changes. No eye pain. No eye discharge. ENT: No runny nose. No epistaxis. No sinus pain. No sore throat. No odynophagia. No congestion. RESPIRATORY: No cough, no congestion. No hemoptysis. No shortness of breath. CARDIOVASCULAR: No angina symptoms. No CHF symptoms. No atypical chest pain for CAD. No palpitations. No orthopnea. GASTROINTESTINAL: No abdominal pain. No nausea or vomiting. No diarrhea or constipation. No hematemesis. No hematochezia. GENITOURINARY: No urgency. No frequency. No dysuria. No hematuria. No obstructive symptoms. No discharge. No pain. No significant abnormal bleeding. MUSCULOSKELETAL: No musculoskeletal pain; no joint swelling. NEUROLOGICAL: No headache. No neck pain. No syncope. No seizures. No dizziness. PSYCHIATRIC: Not anxious. No depression. No suicidal thoughts. No homicidal thoughts. SKIN: No rash. No lesions. No wounds. ENDOCRINE: No unexplained weight loss. No weight gain. HEMATOLOGIC/LYMPHATIC: No anemia. No purpura. No petechiae. No prolonged or excessive bleeding. No palpable lymph nodes. PHYSICAL EXAMINATION: GENERAL: The patient is oriented to time, place and person. VITAL SIGNS: Temperature 99, pulse 72, respiratory rate 20, blood pressure 240/ 105, pulse ox 88%. HEENT: Head normocephalic, atraumatic. Eyes: Extraocular muscles are intact. Pupils are equal, round and reactive to light and accommodation. Ears: No lesions. Nose appeared normal. Throat: No exudate or erythema. NECK: Supple. JVP 2cm, no carotid bruit. No lymphadenopathy or thyromegaly. LUNGS:Decreased breath sounds but clear to auscultation. Percussion note normal. Chest symmetrical. HEART: S1, S2, no S3. Systolic murmurs. No cyanosis or clubbing. No ascites. Pulses: Dorsalis pedis and posterior tibial pulses +1 to +2 both sides. ABDOMEN: Soft. Nontender. Bowel sounds active. No CVA tenderness. No mass felt. EXTREMITIES: No edema. Full range of motion of all extremities, equal. NEUROLOGIC: No focal deficit. Cranial nerves II through XII are grossly intact. No headache, no double vision or headache. SKIN: Not dry. Intact. Turgor - normal. LYMPHATIC: No palpable lymph nodes/no lymphedema. MUSCULOSKELETAL: Normal joints with no swelling. Muscle tone is normal. ASSESSMENT: 1. Acute pulmonary edema 2. Severe hypertension 3. History of CVA 4. History of Bronchitis PLAN: 1. Give IV Lasix 2. Solu-Medrol 3. NEBS Treatment 4. Antibiotics I examined the patient he was feeling a lot better and breathing better. His lungs practically more air entry with few crepitations at the bases. He said that he is feeling a lot better. He had good urine output. His systolic blood pressure was 160. The patient's condition is better, improving. TIME SPENT: More than 30 minutes. Plan and coordination of the patient's care discussed in the presence of nurse. JEWEL
--- NOTE | 2018-11-10 09:25 | PN ---
DATE OF SERVICE: 11/07/18 SUBJECTIVE: The patient is up and about feeling better. Short of breath on exertion. REVIEW OF SYSTEMS: CONSTITUTIONAL: No night sweats. No fatigue, malaise, lethargy. No fever or chills. HEENT: Eyes: No visual changes. No eye pain. No eye discharge. ENT: No runny nose. No epistaxis. No sinus pain. No sore throat. No odynophagia. No congestion. RESPIRATORY: No cough, no congestion. No hemoptysis. Shortness of breath on exertion but no shortness of breath or distress at rest. CARDIOVASCULAR: No angina symptoms. No CHF symptoms. No atypical chest pain for CAD. No palpitations. No orthopnea. GASTROINTESTINAL: No abdominal pain. No nausea or vomiting. No diarrhea or constipation. No hematemesis. No hematochezia. GENITOURINARY: No urgency. No frequency. No dysuria. No hematuria. No obstructive symptoms. No discharge. No pain. No significant abnormal bleeding. MUSCULOSKELETAL: No musculoskeletal pain; no joint swelling. NEUROLOGICAL: No headache. No neck pain. No syncope. No seizures. No dizziness. PSYCHIATRIC: Not anxious. No depression. No suicidal thoughts. No homicidal thoughts. SKIN: No rash. No lesions. No wounds. ENDOCRINE: No unexplained weight loss. No weight gain. HEMATOLOGIC/LYMPHATIC: No anemia. No purpura. No petechiae. No prolonged or excessive bleeding. No palpable lymph nodes. PHYSICAL EXAMINATION: VITAL SIGNS: Systolic blood pressure is 160 fluctuates but it seems to be under control. HEENT: Head normocephalic, atraumatic. Eyes: Extraocular muscles are intact. Pupils are equal, round and reactive to light and accommodation. Ears: No lesions. Nose appeared normal. Throat: No exudate or erythema. NECK: Supple. No JVD, no carotid bruit. No lymphadenopathy or thyromegaly. LUNGS: Mild wheeze and good air entry. Clear to auscultation. Percussion note normal. Chest symmetrical. HEART: S1, S2, no S3. No murmurs. No cyanosis or clubbing. No ascites. Pulses: Dorsalis pedis and posterior tibial pulses +1 to +2 both sides. ABDOMEN: Soft. Nontender. Bowel sounds active. No CVA tenderness. No mass felt. EXTREMITIES: No edema. Full range of motion of all extremities, equal. NEUROLOGIC: No focal deficit. Cranial nerves II through XII are grossly intact. No headache, no double vision or headache. SKIN: Not dry. Intact. Turgor - normal. LYMPHATIC: No palpable lymph nodes/no lymphedema. MUSCULOSKELETAL: Normal joints with no swelling. Muscle tone is normal. ASSESSMENT: 1. CHF under control 2. Blood pressure, getting control 3. Neurological status is stable 4. Status post CVA PLAN: 1. Continue Steroids 2. Antibiotics 3. IV Lasix 4. CHF discussed in detail with the family 5. Advised to cut down on salt intake 6. Keep legs up 7. The patient has been eating a lot, whatever come in the way during the Holiday season. 8. CHF education carried out. TIME SPENT: More than 30 minutes. Plan and coordination of the patient's care discussed in the presence of nurse. JEWEL
[2018-11-10] MEDS: MULTIVITAMIN TABLET PO SCH (09:29)
[2018-11-10] MEDS: ZOLOFT PO SCH (09:29)
[2018-11-10] MEDS: ASPIRIN CHEWABLE PO SCH (09:29)
[2018-11-10] MEDS: PLAVIX PO SCH (09:29)
[2018-11-10] MEDS: COZAAR PO SCH (09:29)
[2018-11-10] MEDS: MINOXIDIL PO SCH ×3 (09:30→20:24)
[2018-11-10] MEDS: FLOMAX PO SCH (09:30)
[2018-11-10] MEDS: ZEBETA PO SCH (09:30)
[2018-11-10] MEDS: APRESOLINE PO SCH ×3 (09:32→20:23)
[2018-11-10] MEDS: FERROUS SULFATE PO SCH ×2 (09:32→20:23)
[2018-11-10] MEDS: MEVACOR PO SCH (09:32)
[2018-11-10] MEDS: TYLENOL PO SCH ×2 (09:33→20:23)
[2018-11-10] MEDS: K-DUR PO SCH ×2 (09:33→17:12)
[2018-11-10] MEDS: VITAMIN D PO SCH (09:33)
[2018-11-10] MEDS: CATAPRES PO SCH ×3 (09:34→20:24)
[2018-11-10] MEDS: ARTIFICIAL TEARS OPTH SOL OP SCH ×4 (09:34→20:24)
[2018-11-10] MEDS: LOVENOX SUBCUT SCH (09:36)
[2018-11-10] MEDS: ROCEPHIN 1 GM in SODIUM CHLORIDE 50 ML IV SCH (09:56)
[2018-11-10] MEDS ORDERED: SOLU-MEDROL 125 MG ONE (12:10)
--- NOTE | 2018-11-10 14:19 | DI ---
Exam: Single view of the chest. Comparison: 11/08/2018. Reason for exam: Increased shortness of breath. FINDINGS: There is blunting of the costophrenic angles with parenchymal change consistent with chron ic lung disease. No new pneumothorax or focal airspace consolidation. The cardiac silhouette is unc hanged. Impression: Similar appearing basilar atelectasis/pneumonia in the setting of chronic lung disease.
[2018-11-10] MEDS: ZITHROMAX PO SCH (15:18)
[2018-11-10] MEDS ORDERED: POTASSIUM CHLORIDE 40 MEQ VIAL-ADDITIVE ONLY IV ONE (18:10)
[2018-11-10] MEDS ORDERED: POTASSIUM CHLORIDE 20 MEQ VIAL IV ONE (18:15)
[2018-11-10] MEDS ORDERED: D5%-1/4NS-KCL 20 MEQ/L IV SOL 1,000 ML IV ONE ×2 (19:09)
[2018-11-10] MEDS: OMEGA-3 FISH OIL PO SCH (20:23)
[2018-11-11] MEDS: CARDENE-NACL 20 MG/200 ML SOLN 20 MG in PREMIX 200ML 0.86% SODIUM CHLORIDE 1 BAG IV SCH ×5 (00:06→18:04)
[2018-11-11] MEDS: ATIVAN PO PRN (04:16)
[2018-11-11] MEDS: XOPENEX 1.25 MG NEB SCH ×3 (05:30→22:00)
[2018-11-11] MEDS: LASIX TAB PO SCH (06:10)
[2018-11-11] MEDS: D5%-1/2NS-KCL 40 MEQ/L IV SOL 1,000 ML IV SCH ×2 (07:28→08:51)
[2018-11-11] MEDS ORDERED: MORPHINE 2 MG/ML SYRINGE IVP PRN (09:11)
[2018-11-11] MEDS: SOLU-MEDROL 125 MG IVP SCH ×2 (09:23→22:32)
[2018-11-11] MEDS: ZEBETA PO SCH (09:24)
[2018-11-11] MEDS: CATAPRES PO SCH ×3 (09:24→22:29)
[2018-11-11] MEDS: ASPIRIN CHEWABLE PO SCH (09:24)
[2018-11-11] MEDS: ZOLOFT PO SCH (09:24)
[2018-11-11] MEDS: MULTIVITAMIN TABLET PO SCH (09:24)
[2018-11-11] MEDS: MEVACOR PO SCH (09:25)
[2018-11-11] MEDS: FERROUS SULFATE PO SCH ×2 (09:25→22:30)
[2018-11-11] MEDS: VITAMIN D PO SCH (09:25)
[2018-11-11] MEDS: PLAVIX PO SCH (09:25)
[2018-11-11] MEDS: APRESOLINE PO SCH ×2 (09:25→22:30)
[2018-11-11] MEDS: FLOMAX PO SCH (09:25)
[2018-11-11] MEDS: TYLENOL PO SCH ×2 (09:25→22:30)
[2018-11-11] MEDS: MINOXIDIL PO SCH ×2 (09:26→22:30)
[2018-11-11] MEDS: ZITHROMAX PO SCH (09:26)
[2018-11-11] MEDS: COZAAR PO SCH (09:26)
[2018-11-11] MEDS: ARTIFICIAL TEARS OPTH SOL OP SCH ×4 (09:27→22:33)
[2018-11-11] MEDS: ROCEPHIN 1 GM in SODIUM CHLORIDE 50 ML IV SCH (09:27)
[2018-11-11] MEDS: K-DUR PO SCH (09:27)
[2018-11-11] MEDS: LOVENOX SUBCUT SCH (09:28)
[2018-11-11] MEDS ORDERED: DEXTROSE 5%-1/2NS IV SOLUTION 1,000 ML IV SCH ×2 (09:30→15:30)
--- NOTE | 2018-11-11 09:45 | PCM.PROG ---
Attending Provider: ATTENDING PROVIDER: Dr. RICO HERNANDEZ This patient is seen with Karyn Del Castillo, Nurse Practitioner. DATE OF SERVICE: 11/11/18 SUBJECTIVE: This 83 year old WHITE/ M was hospitalized 11/06/18. The patient is lying in bed, anxious this morning, desaturing, talking without CPAP. He has been agitated, pulling at IV lines and catheter. REVIEW OF SYSTEMS: CONSTITUTIONAL: No night sweats. No fatigue, malaise, lethargy. No fever or chills. HEENT: Eyes: No visual changes. No eye pain. No eye discharge. ENT: No runny nose. No epistaxis. No sinus pain. No odynophagia. No congestion. RESPIRATORY: No cough, no congestion. No hemoptysis. Positive for shortness of breath. CARDIOVASCULAR: No angina symptoms. No CHF symptoms. No atypical chest pain for CAD. No palpitations. No orthopnea.. GASTROINTESTINAL: No abdominal pain. No nausea or vomiting. No diarrhea or constipation. No hematemesis. No hematochezia. GENITOURINARY: No urgency. No frequency. No dysuria. No hematuria. No obstructive symptoms. No discharge. No pain. No significant abnormal bleeding. MUSCULOSKELETAL: No musculoskeletal pain; no joint swelling. NEUROLOGICAL: Awake, alert, oriented to person. No headache. No neck pain. No syncope. No seizures. No dizziness. PSYCHIATRIC: Anxious. No depression. No suicidal thoughts. No homicidal thoughts. SKIN: No rash. No lesions. No wounds. ENDOCRINE: No unexplained weight loss. No weight gain. HEMATOLOGIC/LYMPHATIC: No anemia. No purpura. No petechiae. No prolonged or excessive bleeding. No palpable lymph nodes. PHYSICAL EXAMINATION: GENERAL: The patient is awake, alert and oriented, lying in bed agitated. VITAL SIGNS: Temperature 97.7 F, Pulse 78, Respiratory Rate 22, BP 129/66, Pulse Ox 98% HEENT: Head normocephalic, atraumatic. Eyes: Extraocular muscles are intact. Pupils are equal, round and reactive to light and accommodation. Ears: No lesions. Nose appeared normal. Throat: No exudate or erythema. NECK: Supple. No JVD, no carotid bruit. No lymphadenopathy or thyromegaly. LUNGS: Severely diminished breath sounds. Clear to auscultation. Percussion note normal. Chest symmetrical. HEART: S1, S2, no S3. No murmurs. No cyanosis or clubbing. No ascites. Pulses: Dorsalis pedis and posterior tibial pulses +1 to +2 both sides. ABDOMEN: Soft. Non-tender. Bowel sounds active. No CVA tenderness. No mass felt. EXTREMITIES: Trace bilateral edema. Full range of motion of all extremities, equal. NEUROLOGIC: No focal deficit. Cranial nerves II through XII are grossly intact. No headache, no double vision or headache. SKIN: Not dry. Intact. Turgor-normal. LYMPHATIC: No palpable lymph nodes/no lymphedema. MUSCULOSKELETAL: Normal joints with no swelling. Muscle tone is normal. LAB REVIEW: 11/11/18 05:50 11/11/18 05:50 11/11/18 05:50: Sodium 140.6, Potassium 4.99, Chloride 105.1, Carbon Dioxide 27.6, Anion Gap 12.89, BUN 72.0 H*, Creatinine 3.61 H*, Estimated GFR (MDRD) 16.00, BUN/Creatinine Ratio 19.94, Glucose 192.7 H, Calcium 9.11, Total Bilirubin 0.48, AST 45.3, ALT 19.9, Alkaline Phosphatase 64.8, Total Protein 7.11, Albumin 4.17, Globulin 2.94, Albumin/Globulin Ratio 1.41 11/11/18 05:50: WBC 17.58 H, RBC 3.76 L, Hgb 10.2 L, Hct 32.5 L, MCV 86.4, MCH 27.1, MCHC 31.4 L, RDW Coeff of Cassi 15.7 H, Plt Count 219, Immature Gran % (Auto ) 2.5, Neut % (Auto) 89.5, Lymph % (Auto) 2.7 L, [place] % (Auto) 5.2, Eos % (Auto ) 0.0, Baso % (Auto) 0.1, Immature Gran # (Auto) 0.4, Neut # (Auto) 15.7 H, Lymph # (Auto) 0.5 L, [place] # (Auto) 0.9, Eos # (Auto) 0.0, Baso # (Auto) 0.0 ASSESSMENT: 1. Acute CHF/acute respiratory failure/severe hypertension, all under control. 2. The patient's problem is he has has acute renal failure and chronic kidney disease from aggressive diuretic therapy; also from severe hypertension. 3. Status post CVA. 4. Severe anemia. PLAN: 1. Ativan 0.5 mg q.6 p.r.n. 2. Morphine 0.5 mg q.6 p.r.n. 3. Hold potassium. 4. Change IV fluids to D5 1/2 75 cc, no potassium. Plan and coordination of the patient's care discussed in the presence of School Guidance Counselor and nurse. CONDITION: Guarded SCRIBED BY: JULISSA OVIEDO Director Rehabilitation Program scribed while in presence of service performed by Dr. Hernandez/Karyn Del Castillo APRN on 11/11/18 ([id number])
[2018-11-11] MEDS: ATIVAN PO SCH ×4 (10:13→17:28)
--- NOTE | 2018-11-11 14:51 | PN ---
DATE OF SERVICE: 11/08/18 SUBJECTIVE: The patient was seen and examined at nearly 12:45 a.m. this morning. The patient went into acute respiratory distress. According to the nurse who called me, they gave a breathing treatment but the patient didn't get better. The patient's blood pressure was more than 230. Blood gases done this morning at 1 a.m. showed pH of 7.02 with p02 of 102, pc02 111 with 93% saturation on 40% Venti mask. When I examined the patient he was in distress, unresponsive. Daughter was present in the room. The patient's pulse was 120/min, respiratory rate 25, BP systolic was 230. The patient was in respiratory distress with wheezing bilaterally. He had expiratory wheeze with intercostal muscle retractions. The patient was in acute CHF with hypertensive crisis, hypertensive encephalopathy. At that point, the plan was to give the patient IV Lasix, which was also given 80 mg before I came ordered by me. The patient was given 5 mg of Morphine Sulfate. The patient was given Vasotec 1.25 twice. I called Von Wolfe who is a nurse informatica architect. Intubation and respirator was discussed with the daughter. Clearly indicated that the patient did not want any respirator or any resuscitative efforts especially involving intubation , putting on artificial respirations. This was witnessed by Mimi, the nurse, along with Adalgisa, who is also a nurse. It was decided not to intubate the patient but to do other measures. I told the daughter that the patient's condition is critical. Later on, the patient was started on Cardene drip 5 mg/hr. Arterial line was inserted by Von Wolfe. By then the blood pressure systolic dropped to 170 - 190. Good pulse wave. Arterial blood gases prior to that were repeated, showed pH 7.993, pc02 121, p02 89 with 89% saturation on 100% non rebreather. At that point, the patient was decided to be on bipap with pressure of 18/6, 60 % FI02 and tidal volume of 550 cc refer to 60%. With two more milligram of Morphine after 5 mg initially, the patient with bipap settled down. The blood gases at 2:25 a.m. on 11/08/18 showed pH of 7.15 with p02 of 78, pc02 78, oxygen saturation 90% on 70% FI02 on bipap. Blood gases improved remarkably. The patient looked better, breathing was settling down, his condition was stabilizing, still condition was critical. Long-term and short-term prognosis is poor. I explained to the daughter that the arterial line was working well. Total time spent this morning was 2 hours and 30 minutes. ADDITIONAL DICTATION: Later on, the patient's blood gases were done in the morning around 8 a.m. pH was 7.35 with p02 of more than 60. PC02 was around 50, remarkable improvement. His blood pressure still systolic around 150 to 160. Cardene dose IV has been doubled up. Hopefully, the patient will be able to take his medicine by mouth. The patient has been started on Rocephin for bronchitis. He has also been given Solu-Cortef intermittently. PHYSICAL EXAMINATION: HEENT: Head normocephalic, atraumatic. Eyes: Extraocular muscles are intact. Pupils are equal, round and reactive to light and accommodation. Ears: No lesions. Nose appeared normal. Throat: No exudate or erythema. NECK: Supple. No JVD, no carotid bruit. No lymphadenopathy or thyromegaly. LUNGS: Decreased breath sounds with wheeze. Not good air entry but better than yesterday. HEART: S1, S2, no S3. No murmurs. No cyanosis or clubbing. No ascites. Pulses: Dorsalis pedis and posterior tibial pulses +1 to +2 both sides. ABDOMEN: Soft. Nontender. Bowel sounds active. No CVA tenderness. No mass felt. EXTREMITIES: No edema. Full range of motion of all extremities, equal. NEUROLOGIC: No focal deficit. Cranial nerves II through XII are grossly intact. No headache, no double vision or headache. SKIN: Not dry. Intact. Turgor - normal. LYMPHATIC: No palpable lymph nodes/no lymphedema. MUSCULOSKELETAL: Normal joints with no swelling. Muscle tone is normal. The echocardiogram was done which showed ejection fraction close to 50 to 55%, borderline LVH, normal valves. The patient's creatinine is more than two indicating renal failure which could be because of worsening of kidney functions from aggressive diuretic therapy. ASSESSMENT: The patient is being treated for hypertensive urgency, hypertensive encephalopathy, congestive heart failure, chronic lung disease, acute bronchitis , status post CVA. Condition is stable for now. Prognosis is still poor. The patient is DNI. TIME SPENT: 2 hours, 30 minutes. Plan and coordination of the patient's care discussed in the presence of nurse. JEWEL
[2018-11-11] MEDS ORDERED: DULCOLAX RC STA (15:11)
[2018-11-11] MEDS: MORPHINE 2 MG/ML SYRINGE IVP PRN ×2 (15:20→21:50)
[2018-11-11] MEDS: OMEGA-3 FISH OIL PO SCH (22:30)
[2018-11-12] MEDS: CARDENE-NACL 20 MG/200 ML SOLN 20 MG in PREMIX 200ML 0.86% SODIUM CHLORIDE 1 BAG IV SCH ×4 (01:10→14:28)
[2018-11-12] MEDS: XOPENEX 1.25 MG NEB SCH ×2 (04:40→14:08)
[2018-11-12] MEDS: LASIX TAB PO SCH (06:31)
[2018-11-12] MEDS ORDERED: DULCOLAX RC STA (09:03)
[2018-11-12] MEDS: ZOLOFT PO SCH (10:17)
[2018-11-12] MEDS: ZITHROMAX PO SCH (10:17)
[2018-11-12] MEDS: MINOXIDIL PO SCH (10:18)
[2018-11-12] MEDS: PLAVIX PO SCH (10:18)
[2018-11-12] MEDS: ATIVAN PO PRN ×2 (10:18→14:28)
[2018-11-12] MEDS: ASPIRIN CHEWABLE PO SCH (10:18)
[2018-11-12] MEDS: TYLENOL PO SCH (10:18)
[2018-11-12] MEDS: APRESOLINE PO SCH (10:18)
[2018-11-12] MEDS: VITAMIN D PO SCH (10:18)
[2018-11-12] MEDS: FLOMAX PO SCH (10:18)
[2018-11-12] MEDS: MULTIVITAMIN TABLET PO SCH (10:18)
[2018-11-12] MEDS: CATAPRES PO SCH (10:19)
[2018-11-12] MEDS: MEVACOR PO SCH (10:19)
[2018-11-12] MEDS: COZAAR PO SCH (10:19)
[2018-11-12] MEDS: FERROUS SULFATE PO SCH (10:19)
[2018-11-12] MEDS: ZEBETA PO SCH (10:19)
[2018-11-12] MEDS: SOLU-MEDROL 125 MG IVP SCH (10:19)
[2018-11-12] MEDS: ROCEPHIN 1 GM in SODIUM CHLORIDE 50 ML IV SCH (10:20)
[2018-11-12] MEDS: LOVENOX SUBCUT SCH (10:20)
[2018-11-12] MEDS: ARTIFICIAL TEARS OPTH SOL OP SCH ×2 (11:13→14:28)
--- NOTE | 2018-11-12 11:57 | PN ---
DATE OF SERVICE: 11/11/18 SUBJECTIVE: The patient seems to be stabilizing. The patient still has respiratory distress at times. He has to be on Bipap. The patient's saturation is 93% with Bipap. The patient's cardiovascular status seems to be stable. Respiratory status still has mild wheeze, decreased breath sounds. Air entry is the same as yesterday. Trace edema noted. The patient's blood pressure is still acceptable, 130/80 plus/minus 10. The patient had change in the medication yesterday, will try to cut down on Clonidine 0.2 twice a day from 0.3. The patient is on Minoxidil. Cozaar dose has been reduced. His kidney functions has worsened with creatinine of 3.5. He is on IV fluids, slow hydration because of history of CHF. Condition stable but prognosis is poor. His mental status confused at times but he is oriented to person and place. The patient may have mild hypertensive encephalopathy. The patient has history of stroke. The patient is DNI. The patient has bladder spasm, will give Morphine 2 mg q.6. The patient's daughter is in the room. I explained to her that his prognosis is poor. Discussed about his kidneys which have renal failure. She doesn't want anything further done and I agreed with her. Will increase the IV fluids to 75 cc, Morphine Sulfate 2 mg for bladder spasm every 6 hourly. He didn't have a good BM for the last couple of days. He had a good bowel movement on Thursday, three days ago. Will try to give Dulcolax suppository and Fleet enema. TIME SPENT: More than 30 minutes. Plan and coordination of the patient's care discussed in the presence of nurse. JEWEL
[2018-11-12 12:02] VITALS: TEMP 98.3
[2018-11-12 13:44] VITALS: BP 124/58
--- NOTE | 2018-11-12 14:33 | DS ---
DATE OF SERVICE: 11/12/18 FINAL DIAGNOSIS: 1. CHF 2. Acute respiratory failure 3. Pneumonitis 4. Acute on chronic kidney failure 5. Anemia 6. Hypertension 7. CVA, 2016 8. Generalized arthritis 9. Dyslipidemia 10.Constipation 11.Bilateral cataract extraction with implants. DISCHARGE INSTRUCTIONS: Discharged to swing bed for continuation of IV fluids and to monitor labs due ti increased BUN/Creatinine and continued need for antibiotics and IV steroids for respiratory failure. MEDICATIONS AT DISCHARGE: Flomax 0.4mg PO bedtime Feosol 325mg PO twice a day Lovastatin 20mg PO 1700 Catapres 0.2mg PO twice a day Zebeta 10mg PO daily Men's Daily formula capsule one each PO daily Aspirin 81mg PO bedtime Lasix 20mg PO daily Refresh Plus one each OP four times a day Tylenol Arthritis 650mg PO daily Tylenol Arthritis 1,300mg PO bedtime Plavix 75mg PO daily Fish oil 1,000mg PO bedtime Refresh Celluvisc one drop OP 3-4 times daily PRN Zyrtec 10mg PO daily PRN Hydralazine HCL 50mg PO twice a day Zoloft 200mg PO daily Sertraline 200mg PO daily Minoxidil 2.5mg PO twice a day Vitamin D3 2,000 units PO daily DIET INSTRUCTIONS: As tolerated ACTIVITY: Bed rest SMOKING: N/A DISEASE SPECIFIC EDUCATION: Swing bed Antibiotics Steroids HOSPITAL COURSE: 83 year old white male who presented to the emergency room on 11/06/18 with shortness of breath, cough and congestion. He was found to be in acute renal failure under hypertensive emergency. Chest x-ray showed pulmonary edema. Blood pressure around 250/102. He was admitted to the special care unit. He was in acute respiratory failure. ABG were abnormal and initial pH was 6.9. He was placed on BIPAP and given 80mg of IV Lasix initially. He ended up on a Leigha drip. Over the course of several days his breathing has both improved and worsened. He was weaned off of BIPAP and placed on a CPAP on three liters and then was able to go down to a Venturi Mask however he has return to requiring BIPAP after another episode of desaturation. He has been unable to eat as it causes desaturation. Today he is on BIPAP 28%. Kidney function was slightly abnormal on admission again he was in acute respiratory failure secondary to heart failure. He was given Lasix IV and his kidney function has steadily worsened. Today his BUN is 72, creatinine 3.61, blood pressure is finally controlled after Leigha drip and he was able to weaned off. He has been oral medications and this has since been under control, blood pressure 140/68 today. He is going to be discharged from acute to be placed in swing bed. He is still requiring IV antibiotics due to secondary bronchitis and early pneumonia and chronic respiratory failure. He still remains on BIPAP. His condition is very guarded. Family demonstrates understanding. He has had a 9 pound weight loss over the course of the past several days. He is no longer getting IV Lasix but 20mg PO daily. He will discharged in guarded condition and placed on swing bed for admission. We will continue with daily CBC and CMP to monitor his kidney function. He is on slow IV fluids at 75cc in order to improve his kidney function. TIME SPENT: More than 60 minutes. MTDD
--- NOTE | 2018-11-12 14:45 | PN ---
DATE OF SERVICE: 11/10/18 SUBJECTIVE: 83-year-old white male hospitalized with severe hypertension, congestive heart failure, acute respiratory distress, respiratory failure. The patient's condition is steadily improving. Mental status has improved. He is paying attention to his CPAP and the pressure readings and all that. REVIEW OF SYSTEMS: CONSTITUTIONAL: No night sweats. No fatigue, malaise, lethargy. No fever or chills. HEENT: Eyes: No visual changes. No eye pain. No eye discharge. ENT: No runny nose. No epistaxis. No sinus pain. No sore throat. No odynophagia. No congestion. RESPIRATORY: No cough, no congestion. No hemoptysis. No shortness of breath. CARDIOVASCULAR: No angina symptoms. No CHF symptoms. No atypical chest pain for CAD. No palpitations. No PND, no orthopnea. GASTROINTESTINAL: Appetite is improving to some extent. No abdominal pain. No nausea or vomiting. No diarrhea or constipation. No hematemesis. No hematochezia. GENITOURINARY: No urgency. No frequency. No dysuria. No hematuria. No obstructive symptoms. No discharge. No pain. No significant abnormal bleeding. MUSCULOSKELETAL: No musculoskeletal pain; no joint swelling. NEUROLOGICAL: No headache. No neck pain. No syncope. No seizures. No dizziness. PSYCHIATRIC: Not anxious. No depression. No suicidal thoughts. No homicidal thoughts. SKIN: No rash. No lesions. No wounds. ENDOCRINE: No unexplained weight loss. No weight gain. HEMATOLOGIC/LYMPHATIC: No anemia. No purpura. No petechiae. No prolonged or excessive bleeding. No palpable lymph nodes. PHYSICAL EXAMINATION: VITAL SIGNS: Temperature 97.6, pulse 80, respiratory rate 15. BP 150/70, pulse ox 94%. HEENT: Head normocephalic, atraumatic. Eyes: Extraocular muscles are intact. Pupils are equal, round and reactive to light and accommodation. Ears: No lesions. Nose appeared normal. Throat: No exudate or erythema. NECK: Supple. No JVD, no carotid bruit. No lymphadenopathy or thyromegaly. LUNGS: Decreased breath sounds but clear with mild wheeze. Percussion note normal. Chest symmetrical. HEART: S1, S2, no S3. No murmurs. No cyanosis or clubbing. No ascites. Pulses: Dorsalis pedis and posterior tibial pulses +1 to +2 both sides. ABDOMEN: Soft. Nontender. Bowel sounds active. No CVA tenderness. No mass felt. EXTREMITIES: Trace edema. Full range of motion of all extremities, equal. NEUROLOGIC: No focal deficit. Cranial nerves II through XII are grossly intact. No headache, no double vision or headache. SKIN: Not dry. Intact. Turgor - normal. LYMPHATIC: No palpable lymph nodes/no lymphedema. MUSCULOSKELETAL: Normal joints with no swelling. Muscle tone is normal. LABS: Hemoglobin 9.7, hematocrit 31, WBC 14,000, normal differential. Creatinine 3.5, BUN 52, potassium 3.9. ASSESSMENT: 1. ACUTE RESPIRATORY FAILURE SEEMS TO BE UNDER CONTROL TO RESOLVING 2. CHRONIC LUNG DISEASE WITH ACUTE BRONCHITIS/PNEUMONITIS SEEMS TO BE IMPROVING 3. ACUTE RENAL FAILURE ON CHRONIC KIDNEY DISEASE SEEMS TO HAVE DETERIORATED 4. ACUTE PULMONARY EDEMA SEEMS TO HAVE RESOLVED 5. HYPERTENSION, SEVERE, SEEMS TO BE UNDER CONTROL 6. STATUS POST CVA PLAN: 1. Back off from diuretic and some of the antihypertensive medication 2. Continue nebs 3. Decrease Solu-Cortef 100 q.12 4. Increase IV fluids to 75 cc/hr 5. Discontinue Diovan 6. Cozaar 50 mg p.o. to be started 7. Minoxidil decrease to 2.5 twice a day 8. Hydralazine increase to 50 b.i.d. 9. Clonidine decrease to 0.3 b.i.d. CONDITION: Stable PROGNOSIS: Guarded TIME SPENT: More than 30 minutes. Plan and coordination of the patient's care discussed in the presence of nurse. JEWEL
--- NOTE | 2018-11-16 11:55 | PN ---
DATE OF SERVICE: 11/12/18 SUBJECTIVE: The patient is an 83-year-old white male who seems to be doing probably the same. He is still short of breath on minimal exertion. Blood gases showed improvement this morning with the change in his BIPAP settings and now it is 28 % in the morning. The patient had pH of 7.2 with p02 of more than 100, c02 close to 55. Partially compensated respiratory acidosis along with possibility of metabolic component from renal failure. The patient is unable to eat much at all. He is on IV fluids 75 cc/hr. We are watching it closely so as to not overload his cardiovascular system. The patient 's creatinine is now 4.5 which is rising. Again, the family, especially the daughter is aware of this and is wanting comfort measures. The patient is DNI. PHYSICAL EXAMINATION: HEENT: Head normocephalic, atraumatic. Eyes: Extraocular muscles are intact. Pupils are equal, round and reactive to light and accommodation. Ears: No lesions. Nose appeared normal. Throat: No exudate or erythema. NECK: Supple. No JVD, no carotid bruit. No lymphadenopathy or thyromegaly. LUNGS: Decreased breath sounds, mild wheeze. Percussion note normal. Chest symmetrical. HEART: S1, S2, no S3. No murmurs. No cyanosis or clubbing. No ascites. Pulses: Dorsalis pedis and posterior tibial pulses +1 to +2 bilaterally. ABDOMEN: Soft. Nontender. Bowel sounds active. No CVA tenderness. No mass felt. EXTREMITIES: No edema. Full range of motion of all extremities, equal. NEUROLOGIC: No focal deficit. Cranial nerves II through XII are grossly intact. No headache, no double vision or headache. SKIN: Not dry. Intact. Turgor - normal. LYMPHATIC: No palpable lymph nodes/no lymphedema. MUSCULOSKELETAL: Normal joints with no swelling. Muscle tone is normal. ASSESSMENT: 1. ACUTE RESPIRATORY FAILURE SEEMS TO BE STABILIZING ON BIPAP. WILL CUT DOWN THE FI02 TO 28% FROM 40%. INCREASE THE RATE TO 18. 2. ACUTE BRONCHITIS/PNEUMONITIS BEING TREATED WITH ANTIBIOTICS, STEROIDS AND NEBS. 3. ACUTE RENAL FAILURE WITH SLOW IV HYDRATION. THE PATIENT PROBABLY HAD ACUTE TUBULAR NECROSIS OR HYPERTENSIVE KIDNEY DISEASE WITH SHUTDOWN ON ACUTE EPISODE TWO DAYS AGO. 4. STATUS POST CVA. 5. DIABETES MELLITUS. 6. HISTORY OF HYPERTENSION. 7. HISTORY OF DYSLIPIDEMIA. PLAN: 1. Continue steroids, nebs, IV fluids. 2. Monitor kidney function. 3. Monitor ABGs. 4. The patient will be transferred to swing bed. CONDITION FOR NOW: Stable PROGNOSIS: Poor. TIME SPENT: More than 30 minutes. Plan and coordination of the patient's care discussed in the presence of nurse. JEWEL
== END 2018-11-12 14:38 | disposition swing bed (61) | DRG 304 ==
LOC: ED 14:55 → SCU 19:47
PROVIDERS: ADMIT Internal Medicine; ATTEND Internal Medicine
DX: I16.0 Hypertensive urgency (principal); I50.23 Acute on chronic systolic (congestive) heart failure; J96.00 Acute respiratory failure, unspecified whether with hypoxia or hypercapnia; J18.9 Pneumonia, unspecified organism; J81.0 Acute pulmonary edema; N17.9 Acute kidney failure, unspecified; N18.9 Chronic kidney disease, unspecified; D64.9 Anemia, unspecified; E78.5 Hyperlipidemia, unspecified; E11.9 Type 2 diabetes mellitus without complications; M19.90 Unspecified osteoarthritis, unspecified site; K59.00 Constipation, unspecified; F41.9 Anxiety disorder, unspecified; R05 Cough; R06.2 Wheezing; Z86.73 Personal history of transient ischemic attack (TIA), and cerebral infarction without residual deficits
CPT/HCPCS: 36415; 80053; 81001; 82272; 82550; 82803; 83605; 83880; 84145; 84484; 85025; 87040; 87081; 87086; 93005; 93010; 94640; 94660; 96361; 96365; 96375; 97802; 99223; 99232; 99239; 99284

== ENCOUNTER 2018-11-12 14:42 | Inpatient (IN) | payer OTHER ==
[2018-11-12] MEDS ORDERED: MORPHINE 2 MG/ML SYRINGE ONE (15:30)
[2018-11-12] MEDS ORDERED: CARBOXYMETHYLCELLULOSE SODIUM OP PRN (16:05)
[2018-11-12] MEDS ORDERED: NON-FORMULARY MEDICATION (Cetirizine Hcl [Zyrtec] 10 MG) PO PRN (16:05)
[2018-11-12] MEDS ORDERED: ZOFRAN 4 MG/2 ML IVP PRN (16:11)
[2018-11-12] MEDS ORDERED: CLARITIN PO PRN (16:36)
[2018-11-12] MEDS ORDERED: LOVASTATIN 20 MG PO SCH (17:00)
[2018-11-12] MEDS ORDERED: CARBOXYMETHYLCELLULOSE SODIUM OP SCH (17:00)
[2018-11-12] MEDS: ARTIFICIAL TEARS OPTH SOL OP SCH ×2 (18:14→21:21)
--- NOTE | 2018-11-12 18:16 | CT ---
EXAM: CT brain without contrast HISTORY: Found on floor, fall TECHNIQUE: Multi-slice sequential. Coronal and sagittal reformations were performed. COMPARISON: None FINDINGS: Examination is limited secondary to abnormal positioning in the gantry. There is no acute intracranial hemorrhage, extraxial fluid collection, mass affect, or midlineshift. There is mild to moderate diffuse sulcal prominence. Ventricular prominence is consistent with the degree of parenchymal volume loss. Periventricular white matter hypodensity is seen. Intracranial a therosclerosis is present. The basal cisterns are patent. No large vascular territory area of hypod ensity is seen within the brain. The calvarium is unremarkable. Visualized paranasal sinuses are cl ear. Mastoid air cells are clear. IMPRESSION: 1. No acute intracranial hemorrhage or midline shift. 2. Generalized atrophy and small vessel ischemic disease. 3. Limited exam secondary to abnormal head positioning in the gantry.
--- NOTE | 2018-11-12 18:21 | CT ---
EXAM: CT thoracic spine without contrast History: Fall, found on floor TECHNIQUE: Multi-slice transaxial helical with coronal and sagittal reformatted views. Comparison: CT chest 06/22/2016. FINDINGS: Examination is slightly limited secondary to motion artifacts. The visualized vertebral body heights appear preserved. No evidence of listhesis is seen. Tiny mult ilevel thoracic endplate osteophytes are seen. No evidence of displaced test spine fracture is seen. No evidence of posterior displaced rib fracture is seen. No critical central canal stenosis is see n. Bilateral layering pleural effusions are present. Patchy airspace opacities are seen within the left upper lobe. See same day CT chest for additional details. Impression: 1. No acute osseous abnormality of the thoracic spine. 2. Motion artifact limited exam. 3. Bilateral layering pleural effusions. 4. Left upper lobe patchy airspace opacities suggesting pulmonary contusion, pneumonia, or asymmetri c pulmonary edema.
--- NOTE | 2018-11-12 18:21 | CT ---
EXAM: CT of the cervical spine without contrast. HISTORY: Fall. PROCEDURE: Contiguous axial CT images of the cervical spine with coronal and sagittal reformats. FINDINGS: The exam is limited secondary to patient positioning and motion artifact. There is normal alignment of the cervical vertebral bodies and facets. The vertebral body heights and intervertebral disc spaces are maintained. No evidence of fracture. There are small posterior osteophytes at mult iple levels of the cervical spine. There is multilevel facet arthropathy. The C1-2 relationship is maintained. No prevertebral soft tissue abnormality. Impression: No evidence of fracture. Normal alignment of the cervical spine with degenerative changes as described. Limited exam as described.
--- NOTE | 2018-11-12 18:22 | CT ---
EXAM: CT LUMBAR SPINE HISTORY: Fall, found on floor TECHNIQUE: CT lumbar spine without contrast. 3-mm axial sections. Coronal and sagittal reformation s. COMPARISON: 06/25/2016 CT FINDINGS: Bones appear demineralized. No acute fracture is seen. Normal vertebral body height and alignment. Sacroiliac joints are intact. Diffuse degenerative disc and facet disease probably most apparent at L4/L5 where there is mild to moderate central canal stenosis and bilateral neural foraminal narrowin g. There is no evidence of traumatic central canal stenosis or paraspinal hematoma. See also same d ay CT abdomen and pelvis report. IMPRESSION: 1. No acute fracture or subluxation. 2. Degenerative changes of the spine. These degenerative changes appear similar to that previously seen.
--- NOTE | 2018-11-12 18:23 | DI ---
EXAM: Left hand two views HISTORY: Found down on floor. FINDINGS: Bones are significantly demineralized. There is diffuse arthropathy. No acute fracture i s seen. Joints are intact. IMPRESSION: 1. No acute fracture or dislocation identified.
--- NOTE | 2018-11-12 18:27 | CT ---
EXAM: CT abdomen and pelvis without contrast. HISTORY: Fall, found on floor TECHNIQUE: Multi-slice transaxial helical CT. Coronal, sagittal, and 3-D volume rendered reformats were performed. COMPARISON: 06/25/2016. FINDINGS: Bilateral layering pleural effusions are present. The heart is mildly enlarged. Evaluation of the solid organs is limited without IV contrast as well as motion artifacts. The splee n measures up to 14.1 cm in length. The gallbladder is grossly normal in size. Evaluation of the li domitila is limited secondary to motion artifacts. No hydronephrosis or renal calculus is seen. The panc reas and the bilateral adrenal glands appear grossly unremarkable. No evidence of hemorrhage about t he liver or spleen is seen. The bowel is not dilated. A Miramontes catheter balloon is seen within the prostate. Prostate is enlarge d measuring up to 5.6 cm in transverse diameter. Urinary bladder appears grossly unremarkable. No p elvic free fluid is seen. Scattered diverticuli are seen within the colon. Mild calcified plaques a re present within the abdominal aorta. A small hiatal hernia is suggested. Edematous changes of the subcutaneous tissues are seen. Small osteophytes at the bilateral sacroiliac joints are present. Th e visualized vertebral body heights appear preserved. IMPRESSION: 1. No acute post traumatic findings of the abdomen. 2. Miramontes catheter balloon within the prostate. Recommend repositioning Miramontes catheter. 3. Limited exam without contrast and secondary to motion artifacts. 4. Colonic diverticulosis. 5. Prostatic enlargement. 6. Diffuse anasarca. 7. Mild cardiomegaly. 8. Bilateral layering pleural effusions.
--- NOTE | 2018-11-12 18:30 | CT ---
EXAM: CT of the chest without contrast. HISTORY: Fall. PROCEDURE: Contiguous axial CT images of the chest without contrast with coronal, sagittal and 3-D r eformats. FINDINGS: There is motion artifact and beam hardening artifact which limits the exam. The heart is m ildly enlarged. There is a small pericardial effusion measuring up to 5 mm AP. The thoracic aorta i s within normal limits in diameter. There are calcified mediastinal and hilar lymph nodes. There ar e small layering bilateral pleural effusions. There is bilateral atelectasis and/or pneumonia. No pneumothorax. The visualized bones are intact with no evidence of fracture. There are degenerative changes in the spine. Impression: Small bilateral pleural effusions. Bilateral atelectasis and/or pneumonia. Small pericardial effusions as described. Mild cardiomegaly.
[2018-11-12] MEDS: ATIVAN PO PRN (18:36)
[2018-11-12] MEDS: XOPENEX 1.25 MG NEB SCH (20:20)
[2018-11-12] MEDS ORDERED: NON-FORMULARY MEDICATION (Omega-3 Fatty Acids/Fish Oil [Fish Oil 1,000 Mg Capsule] 1,000 M PO SCH (21:00)
[2018-11-12] MEDS ORDERED: NON-FORMULARY MEDICATION (Clonidine Hcl [Catapres] 0.2 MG) PO SCH (21:00)
[2018-11-12] MEDS ORDERED: NON-FORMULARY MEDICATION (Ferrous Sulfate [Feosol] 325 MG) PO SCH (21:00)
[2018-11-12] MEDS ORDERED: ACETAMINOPHEN 1300 MG PO SCH (21:00)
[2018-11-12] MEDS: OMEGA-3 FISH OIL PO SCH (21:18)
[2018-11-12] MEDS: MINOXIDIL PO SCH (21:20)
[2018-11-12] MEDS: APRESOLINE PO SCH (21:20)
[2018-11-12] MEDS: FERROUS SULFATE PO SCH (21:20)
[2018-11-12] MEDS: CATAPRES PO SCH (21:21)
[2018-11-12] MEDS: TYLENOL PO SCH (21:21)
[2018-11-12] MEDS: SOLU-MEDROL 125 MG IVP SCH (21:22)
[2018-11-12] MEDS: MORPHINE 2 MG/ML SYRINGE IVP PRN (21:39)
[2018-11-13] MEDS: DEXTROSE 5%-1/2NS IV SOLUTION 1,000 ML IV SCH ×2 (02:06→16:13)
[2018-11-13] MEDS: MORPHINE 2 MG/ML SYRINGE IVP PRN ×5 (04:35→21:46)
[2018-11-13] MEDS: XOPENEX 1.25 MG NEB SCH ×3 (05:22→20:52)
[2018-11-13] MEDS: ATIVAN PO PRN ×2 (06:12→12:15)
[2018-11-13] MEDS: LASIX TAB PO SCH (06:12)
[2018-11-13] MEDS ORDERED: NON-FORMULARY MEDICATION (Acetaminophen [Tylenol Arthritis] 650 MG) PO SCH (09:00)
[2018-11-13] MEDS ORDERED: BISOPROLOL FUMARATE 10 MG PO SCH (09:00)
[2018-11-13] MEDS ORDERED: NON-FORMULARY MEDICATION (Cholecalciferol (Vitamin D3) [Vitamin D3] 2,000 UNITS) PO SCH (09:00)
[2018-11-13] MEDS ORDERED: NON-FORMULARY MEDICATION (Sertraline Hcl [Zoloft] 200 MG) PO SCH (09:00)
[2018-11-13] MEDS ORDERED: [UNRECOGNIZED DRUG - OTHER] PO SCH (09:00)
[2018-11-13] MEDS ORDERED: MULTIVIT MINERALS PO SCH (09:00)
[2018-11-13] MEDS ORDERED: LYCOPENE PO SCH (09:00)
[2018-11-13] MEDS: FERROUS SULFATE PO SCH ×2 (10:13→21:55)
[2018-11-13] MEDS: PLAVIX PO SCH (10:14)
[2018-11-13] MEDS: MINOXIDIL PO SCH ×2 (10:14→21:54)
[2018-11-13] MEDS: APRESOLINE PO SCH ×2 (10:14→21:55)
[2018-11-13] MEDS: MULTIVITAMIN TABLET PO SCH (10:15)
[2018-11-13] MEDS: VITAMIN D PO SCH (10:15)
[2018-11-13] MEDS: CATAPRES PO SCH ×2 (10:15→21:54)
[2018-11-13] MEDS: ASPIRIN CHEWABLE PO SCH (10:16)
[2018-11-13] MEDS: ZEBETA PO SCH (10:16)
[2018-11-13] MEDS: TYLENOL PO SCH ×2 (10:16→21:48)
[2018-11-13] MEDS: ZOLOFT PO SCH (10:17)
[2018-11-13] MEDS: COZAAR PO SCH (10:17)
[2018-11-13] MEDS: SOLU-MEDROL 125 MG IVP SCH ×2 (10:18→22:04)
[2018-11-13] MEDS: ROCEPHIN 1 GM in SODIUM CHLORIDE 50 ML IV SCH (10:18)
[2018-11-13] MEDS: LOVENOX SUBCUT SCH (10:22)
[2018-11-13] MEDS: ARTIFICIAL TEARS OPTH SOL OP SCH ×4 (11:01→22:05)
[2018-11-13] MEDS ORDERED: MORPHINE 2 MG/ML SYRINGE IVP PRN ×2 (11:24→12:09)
[2018-11-13] MEDS ORDERED: HALDOL IM STA (13:09)
[2018-11-13] MEDS ORDERED: HALDOL ONE (13:11)
[2018-11-13] MEDS: ARTIFICIAL TEARS OPTH SOL OP PRN (16:31)
[2018-11-13] MEDS: MEVACOR PO SCH (16:40)
[2018-11-13] MEDS ORDERED: ATIVAN ONE (17:43)
[2018-11-13] MEDS ORDERED: ATIVAN IVP STA (17:50)
[2018-11-13] MEDS: FLOMAX PO SCH (21:53)
[2018-11-13] MEDS: OMEGA-3 FISH OIL PO SCH (22:10)
[2018-11-14] MEDS: MORPHINE 2 MG/ML SYRINGE IVP PRN ×2 (01:23→05:52)
[2018-11-14] MEDS: ATIVAN IVP PRN ×5 (03:35→20:15)
[2018-11-14] MEDS: XOPENEX 1.25 MG NEB SCH ×3 (04:42→20:10)
[2018-11-14] MEDS: LASIX TAB PO SCH (05:52)
[2018-11-14] MEDS: DEXTROSE 5%-1/2NS IV SOLUTION 1,000 ML IV SCH ×3 (05:56→20:17)
[2018-11-14] MEDS: SOLU-MEDROL 125 MG IVP SCH ×2 (09:39→23:24)
[2018-11-14] MEDS: ROCEPHIN 1 GM in SODIUM CHLORIDE 50 ML IV SCH (09:40)
[2018-11-14] MEDS: ARTIFICIAL TEARS OPTH SOL OP SCH ×4 (09:41→23:21)
[2018-11-14] MEDS: MORPHINE 4 MG/ML VIAL IVP PRN ×3 (09:49→16:55)
[2018-11-14] MEDS: MINOXIDIL PO SCH ×2 (10:50→23:26)
[2018-11-14] MEDS: PLAVIX PO SCH (10:50)
[2018-11-14] MEDS: COZAAR PO SCH (10:50)
[2018-11-14] MEDS: ZOLOFT PO SCH (10:50)
[2018-11-14] MEDS: APRESOLINE PO SCH ×2 (10:50→22:19)
[2018-11-14] MEDS: ZEBETA PO SCH (10:50)
[2018-11-14] MEDS: CATAPRES PO SCH ×2 (10:51→23:27)
[2018-11-14] MEDS: LOVENOX SUBCUT SCH (10:51)
[2018-11-14] MEDS: FERROUS SULFATE PO SCH ×2 (10:51→23:25)
[2018-11-14] MEDS: TYLENOL PO SCH (10:52)
[2018-11-14] MEDS: MULTIVITAMIN TABLET PO SCH (10:53)
[2018-11-14] MEDS: VITAMIN D PO SCH (10:54)
[2018-11-14] MEDS: ASPIRIN CHEWABLE PO SCH (10:54)
[2018-11-14] MEDS ORDERED: TYLENOL PO PRN ×2 (11:43)
[2018-11-14] MEDS ORDERED: LASIX IVP STA (13:03)
[2018-11-14] MEDS: MEVACOR PO SCH (16:02)
[2018-11-14] MEDS ORDERED: NARCAN IVP STA ×2 (21:51→21:59)
[2018-11-14] MEDS: FLOMAX PO SCH (23:25)
[2018-11-15] MEDS: XOPENEX 1.25 MG NEB SCH ×3 (05:15→20:15)
[2018-11-15] MEDS: ATIVAN IVP PRN ×2 (05:41→18:09)
[2018-11-15] MEDS: LASIX TAB PO SCH (06:42)
[2018-11-15] MEDS: B & O SUPPOSITORY RC PRN ×2 (07:40→19:41)
[2018-11-15] MEDS: ROCEPHIN 1 GM in SODIUM CHLORIDE 50 ML IV SCH (09:13)
[2018-11-15] MEDS: ARTIFICIAL TEARS OPTH SOL OP SCH ×4 (09:13→21:44)
[2018-11-15] MEDS: SOLU-MEDROL 125 MG IVP SCH ×2 (09:15→22:00)
--- NOTE | 2018-11-15 09:41 | HP ---
DATE OF SERVICE: 11/12/18 REASON FOR HOSPITALIZATION/HISTORY OF PRESENT ILLNESS: 89 year old white male who we had in the special care unit with acute renal failure, hypertensive urgency which is now hypertension is controlled, acute respiratory failure which is slowly improving, acute renal failure which is worsening. We admitted him to swing bed for continued IV fluids, IV antibiotics as well as respiratory support, he is on BIPAP PAST MEDICAL HISTORY: Chronic kidney disease Dyslipidemia Hypertension Anemia Anxiety Depression Polyarthritis Chronic back pain Sleep apnea Hypertension LVH Coronary artery disease BPH PAST SURGICAL HISTORY: Unknown REVIEW OF SYSTEMS: CONSTITUTIONAL: No night sweats. Extreme malaise. No fever or chills. HEENT: Eyes: No visual changes. No eye pain. No eye discharge. ENT: No runny nose. No epistaxis. No sinus pain. No sore throat. No odynophagia. No ear pain. No congestion. RESPIRATORY: Cough, no congestion. No hemoptysis. Shortness of breath. CARDIOVASCULAR: Hypertension. No angina symptoms. No CHF symptoms. No atypical chest pain for CAD. No palpitations. No PND. No orthopnea. GASTROINTESTINAL: No abdominal pain. No nausea or vomiting. No diarrhea or constipation. No hematemesis. No hematochezia. GENITOURINARY: No urgency. No frequency. No dysuria. No hematuria. No obstructive symptoms. No discharge. No pain. No significant abnormal bleeding. MUSCULOSKELETAL: No musculoskeletal pain. No joint swelling. No arthritis. Extreme weakness. NEUROLOGICAL: No headache. No neck pain. No syncope. No seizures. No dizziness. PSYCHIATRIC: Anxious. No depression. No suicidal thoughts. No homicidal thoughts. SKIN: No rash. No lesions. No wounds. Trace leg edema. ENDOCRINE: No unexplained weight loss. No weight gain. HEMATOLOGIC/LYMPHATIC: No anemia. No purpura. No petechiae. No prolonged or excessive bleeding. No palpable lymph nodes. PERSONAL/FAMILY/SOCIAL HISTORY: He is nonsmoker. and lives alone. No alcohol or illicit drug use. His daughter lives nearby and take very good care of him. MEDICATIONS: Flomax 0.4mg PO bedtime Feosol 325mg PO twice a day Lovastatin 20mg PO 1700 Catapres 0.2mg PO twice a day Zebeta 10mg PO daily Men's Daily formula capsule one each PO daily Aspirin 81mg PO bedtime Lasix 20mg PO daily Refresh Plus one each OP four times a day Tylenol Arthritis 650mg PO daily Tylenol Arthritis 1,300mg PO bedtime Plavix 75mg PO daily Fish oil 1,000mg PO bedtime Refresh Celluvisc one drop OP 3-4 times daily PRN Zyrtec 10mg PO daily PRN Hydralazine HCL 50mg PO twice a day Zoloft 200mg PO daily Sertraline 200mg PO daily Minoxidil 2.5mg PO twice a day Vitamin D3 2,000 units PO daily ALLERGIES: Latex Natural Rubber PHYSICAL EXAMINATION: GENERAL: The patient is alert to person, not place and time. HEENT: Head normocephalic, atraumatic. Eyes: Extraocular muscles are intact. Pupils are equal, round and reactive to light and accommodation. Ears: No lesions. Nose appeared normal. Throat: No exudate or erythema. NECK: Supple. No JVD, no carotid bruit. No lymphadenopathy or thyromegaly. LUNGS: Severely diminished breath sounds with upper air way rhonci bilaterally. He is on BIPAP. Percussion note normal. Chest symmetrical. HEART: S1, S2, no S3. No murmurs. No cyanosis or clubbing. No ascites. Pulses: Dorsalis pedis and posterior tibial pulses +1 to +2 bilaterally. ABDOMEN: Soft. Nontender. Bowel sounds active. No CVA tenderness. No mass felt. EXTREMITIES: Trace edema. Full range of motion of all extremities, equal. NEUROLOGIC: No focal deficit. Cranial nerves II through XII are grossly intact. No headache, no double vision or headache. SKIN: Not dry. Intact. Turgor - normal. LYMPHATIC: No palpable lymph nodes/no lymphedema. MUSCULOSKELETAL: Normal joints with no swelling. Muscle tone is normal. LABS: BUN 84, creatinine 4.1. He is on BIPAP at 28%. Chest x-ray yesterday showed stable but persistent pulmonary congestion, cardiomegaly. ASSESSMENT: 1. Acute renal failure 2. Hypertension 3. Underlined chronic kidney disease 4. Respiratory failure 5. CHF 6. Acute bronchitis PLAN: 1. Will admit to swing bed 2. Continue with telemetry 3. Continue Daily CBC and CMP 4. The patient is to be weaned off BIPAP as tolerated 5. Continue IV Rocephin 6. Slow IV fluids normal saline at 75cc an hour We will follow him very closely. His condition is poor. This has been explained to the daughter. PROGNOSIS: Poor and she understands this. TIME SPENT: More than 70 minutes. JEWEL
[2018-11-15] MEDS: DEXTROSE 5%-1/2NS IV SOLUTION 1,000 ML IV SCH (10:13)
[2018-11-15] MEDS: COZAAR PO SCH (10:19)
[2018-11-15] MEDS: FERROUS SULFATE PO SCH ×2 (10:19→21:59)
[2018-11-15] MEDS: ASPIRIN CHEWABLE PO SCH (10:19)
[2018-11-15] MEDS: APRESOLINE PO SCH ×2 (10:19→21:58)
[2018-11-15] MEDS: CATAPRES PO SCH ×2 (10:19→21:59)
[2018-11-15] MEDS: PLAVIX PO SCH (10:20)
[2018-11-15] MEDS: ZEBETA PO SCH (10:20)
[2018-11-15] MEDS: MINOXIDIL PO SCH ×2 (10:20→22:00)
[2018-11-15] MEDS: LOVENOX SUBCUT SCH (10:21)
[2018-11-15] MEDS: ZOLOFT PO SCH (10:21)
[2018-11-15] MEDS: MORPHINE 4 MG/ML VIAL IVP PRN ×2 (14:02→21:44)
[2018-11-15] MEDS: MEVACOR PO SCH (18:13)
[2018-11-15] MEDS: FLOMAX PO SCH (21:59)
[2018-11-16] MEDS: DEXTROSE 5%-1/2NS IV SOLUTION 1,000 ML IV SCH ×2 (00:18→05:58)
[2018-11-16] MEDS: XOPENEX 1.25 MG NEB SCH ×2 (05:00→16:51)
[2018-11-16] MEDS: ATIVAN IVP PRN (05:56)
[2018-11-16] MEDS: LASIX TAB PO SCH (05:58)
[2018-11-16 06:46] VITALS: BP 155/84; TEMP 98.4
[2018-11-16] MEDS: B & O SUPPOSITORY RC PRN (07:54)
[2018-11-16] MEDS: SOLU-MEDROL 125 MG IVP SCH (07:59)
[2018-11-16] MEDS: LOVENOX SUBCUT SCH (08:00)
[2018-11-16] MEDS: ARTIFICIAL TEARS OPTH SOL OP PRN (08:00)
[2018-11-16] MEDS: ARTIFICIAL TEARS OPTH SOL OP SCH ×4 (08:49→21:41)
[2018-11-16] MEDS: MORPHINE 4 MG/ML VIAL IVP PRN (09:15)
[2018-11-16] MEDS ORDERED: DEXTROSE 5%-1/2NS IV SOLUTION 1,000 ML IV SCH (09:30)
--- NOTE | 2018-11-16 10:53 | PN ---
DATE OF SERVICE: 11/14/18 SUBJECTIVE: The patient was seen and examined today. The patient's oxygen saturation on 2L is 90%. He seems to be oriented to person, wakes up when asked questions otherwise is sleepy. There were no bladder spasm as the Miramontes catheter was removed. The daughter is in the room. PHYSICAL EXAMINATION: HEENT: Head normocephalic, atraumatic. Eyes: Extraocular muscles are intact. Pupils are equal, round and reactive to light and accommodation. Ears: No lesions. Nose appeared normal. Throat: No exudate or erythema. NECK: Supple. No JVD, no carotid bruit. No lymphadenopathy or thyromegaly. LUNGS: Decreased breath sounds with mild wheeze. Percussion note normal. Chest symmetrical. HEART: S1, S2, no S3. No murmurs. No cyanosis or clubbing. No ascites. Pulses: Dorsalis pedis and posterior tibial pulses +1 to +2 bilaterally. ABDOMEN: Soft. Nontender. Bowel sounds active. No CVA tenderness. No mass felt. EXTREMITIES: Trace edema. Full range of motion of all extremities, equal. NEUROLOGIC: No focal deficit. Cranial nerves II through XII are grossly intact. No headache, no double vision or headache. SKIN: Not dry. Intact. Turgor - normal. LYMPHATIC: No palpable lymph nodes/no lymphedema. MUSCULOSKELETAL: Normal joints with no swelling. Muscle tone is normal. LABS: Hemoglobin 8.7, hematocrit 27, creatinine 4.3, BUN 102, potassium 4.8. ASSESSMENT: 1. Acute respiratory failure seems to becoming chronic respiratory failure controlled with BIPAP, oxygen supplements. 2. History of CHF. 3. Severe hypertension. 4. Acute renal failure. 5. History of CVA. 6. Dementia. 7. Hypertension. 8. Dyslipidemia. PLAN: 1. The patient is in the swing bed. 2. Will continue to give IV fluids. 3. Will also give 20 mg IV Lasix because of generalized edema noted. 4. Fluid retention. 5. The patient will get bladder scan and Miramontes catheter/straight cath periodically. Will monitor CBC and CMP. 6. I explained to the daughter again that she needs to call all the relatives because the patient's condition is steadily deteriorating with deterioration of his overall status with acute renal failure that has set in. The patient's daughter that is present does not want any aggressive measures, does not want any dialysis or any further evaluation for his kidney problems. CONDITION: Critical PROGNOSIS: Poor TIME SPENT: More than 30 minutes. Plan and coordination of the patient's care discussed in the presence of nurse. JEWEL
--- NOTE | 2018-11-16 11:08 | PN ---
DATE OF SERVICE: 11/13/18 SUBJECTIVE: 83-year-old white male hospitalized with acute respiratory failure with acute pulmonary edema, severe hypertension with hypertensive encephalopathy. This morning the patient is oriented to person and place. Blood gases on 2L on BIPAP , p02 close to 65 with pc02 of 35, pH 7.32 which is improved from yesterday. Oxygen saturation 94%. The patient is restless at times according to the nursing staff likely from bladder spasms. His kidney functions have more or less stabilized with creatinine of 4.1. BUN has gone up some. The patient is on 75 cc/hr. He has very poor urine output. The patient likely suffered acute tubular necrosis on top of chronic kidney disease. At the time when he went through respiratory distress and severe hypertension with aggressive diuretic therapy worsened his kidney functions. Daughter continues to maintain further treatment as far as his kidneys are concerned wanting him to be seen by a medical staff assistant. The patient is DNI. PHYSICAL EXAMINATION: VITAL SIGNS: Temperature 97.9, pulse 93, respiratory rate 30. BP 180/90, pulse ox 95%. HEENT: Head normocephalic, atraumatic. Eyes: Extraocular muscles are intact. Pupils are equal, round and reactive to light and accommodation. Ears: No lesions. Nose appeared normal. Throat: No exudate or erythema. NECK: Supple. No JVD, no carotid bruit. No lymphadenopathy or thyromegaly. LUNGS: Decreased breath sounds but clear with mild wheeze. Percussion note normal. Chest symmetrical. HEART: S1, S2, no S3. No murmurs. No cyanosis or clubbing. No ascites. Pulses: Dorsalis pedis and posterior tibial pulses +1 to +2 bilaterally. ABDOMEN: Soft. Nontender. Bowel sounds active. No CVA tenderness. No mass felt. EXTREMITIES: Trace edema. Full range of motion of all extremities, equal. NEUROLOGIC: No focal deficit. Cranial nerves II through XII are grossly intact. No headache, no double vision or headache. SKIN: Not dry. Intact. Turgor - normal. LYMPHATIC: No palpable lymph nodes/no lymphedema. MUSCULOSKELETAL: Normal joints with no swelling. Muscle tone is normal. LABS: Hemoglobin 9.4, hematocrit 31, WBC 20,000 with normal differential. Potassium is 5.5, a little bit better than yesterday. Creatinine 4.1, BUN 93. ASSESSMENT: 1. Acute respiratory failure seems to have resolved with continued BIPAP which patient requires for now. 2. Chronic lung disease. 3. Acute bronchitis. 4. Congestive heart failure. 5. Severe hypertension with hypertension encephalopathy seems to be resolving. 6. Acute renal failure on chronic renal insufficiency. 7. Diabetes mellitus. 8. History of CVA. 9. Hypertension. 10. Dyslipidemia. PLAN: 1. Continue slow hydration. 2. Watch for fluid overload. 3. Monitor the kidney functions. 4. Monitor ABGs. 5. B & O suppository for bladder spasm. Later on the patient was treated with Morphine Sulfate more frequently along with Ativan. B & O suppositories are not available. 6. Will discontinue Miramontes catheter for tonight to avoid bladder spasm and restlessness. 1 mg of Haldol did not help. TIME SPENT: More than 30 minutes. Plan and coordination of the patient's care discussed in the presence of nurse. JEWEL
--- NOTE | 2018-11-16 11:29 | PN ---
DATE OF SERVICE: 11/15/18 SUBJECTIVE: The patient is in the swing bed. He was seen in the presence of both the daughters. 83-year-old white male hospitalized with severe hypertension and acute CHF with respiratory failure. They want DNR. The patient's overall status is unchanged but slowly deteriorating with deterioration of REVIEW OF SYSTEMS: CONSTITUTIONAL: The patient is more or less drowsy and sleepy but breathing on his own. Opens his eye when you call his name trying to answer the questions. According to the daughter, he recognizes the daughter that just came in from [place]. No night sweats. No fatigue, malaise, lethargy. No fever or chills. HEENT: Eyes: No visual changes. No eye pain. No eye discharge. ENT: No runny nose. No epistaxis. No sinus pain. No sore throat. No odynophagia. No congestion. RESPIRATORY: No cough, no congestion. No hemoptysis. No shortness of breath. CARDIOVASCULAR: No angina symptoms. No CHF symptoms. Denies chest pain. No palpitations. No PND, no orthopnea. GASTROINTESTINAL: No abdominal pain. No nausea or vomiting. No diarrhea or constipation. No hematemesis. No hematochezia. GENITOURINARY: No urgency. No frequency. No dysuria. No hematuria. No obstructive symptoms. No discharge. No pain. No significant abnormal bleeding. MUSCULOSKELETAL: No musculoskeletal pain; no joint swelling. NEUROLOGICAL: No headache. No neck pain. No syncope. No seizures. No dizziness. PSYCHIATRIC: Not anxious. No depression. No suicidal thoughts. No homicidal thoughts. SKIN: No rash. No lesions. No wounds. ENDOCRINE: No unexplained weight loss. No weight gain. HEMATOLOGIC/LYMPHATIC: No anemia. No purpura. No petechiae. No prolonged or excessive bleeding. No palpable lymph nodes. PHYSICAL EXAMINATION: VITAL SIGNS: Temperature 97.7, pulse 63, respiratory rate 20, BP 137/63, pulse ox 94%. HEENT: Head normocephalic, atraumatic. Eyes: Extraocular muscles are intact. Pupils are equal, round and reactive to light and accommodation. Ears: No lesions. Nose appeared normal. Throat: No exudate or erythema. NECK: Supple. No JVD, no carotid bruit. No lymphadenopathy or thyromegaly. LUNGS: Decreased breath sounds with mild expiratory wheeze. Percussion note normal. Chest symmetrical. HEART: S1, S2, distant. No murmurs. No cyanosis or clubbing. No ascites. Pulses: Dorsalis pedis and posterior tibial pulses +1 to +2 bilaterally. ABDOMEN: Soft. Nontender. Bowel sounds active. No CVA tenderness. No mass felt. EXTREMITIES: Pedal edema +1 to +2 dependent part. Full range of motion of all extremities, equal. NEUROLOGIC: No focal deficit. Cranial nerves II through XII are grossly intact. No headache, no double vision or headache. SKIN: Warm and dry. Intact. Turgor - normal. LYMPHATIC: No palpable lymph nodes/no lymphedema. MUSCULOSKELETAL: Normal joints with no swelling. Muscle tone is normal. LABS: Hemoglobin 8.5, hematocrit 27, WBC 20,000, normal differential. Creatinine 4.9, BUN 105. c02 is 22. Arterial blood gases done this morning - pH 7.22 with p02 of more than 60, pc02 35 with 92% saturation on BIPAP; on 94% more or less on room air. The patient is on IV Rocephin, steroids. ASSESSMENT: 1. Respiratory failure seems to be stable. The patient is in chronic respiratory failure. 2. Acute renal failure. The patient seems to have topped out between 4 to 5 of creatinine. BUN has more or less the same practically for the past couple of days. 3. Congestive heart failure under control. 4. Severe hypertension under control. 5. The patient has history of CVA, diabetes mellitus, dementia. PLAN: 1. The patient has become a DNR now, supportive measures. The patient's family declined any further evaluation by fruit and vegetable parer. They want him to be treated at [facility] with comfort measures. Morphine to be used for any discomfort or pain. Cath when patient is needing it. CONDITION: More or less stable. PROGNOSIS: Poor. TIME SPENT: More than 30 minutes. Plan and coordination of the patient's care discussed in the presence of nurse. JEWEL
[2018-11-16] MEDS: APRESOLINE PO SCH ×2 (11:47→21:41)
[2018-11-16] MEDS: ASPIRIN CHEWABLE PO SCH (11:48)
[2018-11-16] MEDS: CATAPRES PO SCH ×2 (11:49→21:41)
[2018-11-16] MEDS: COZAAR PO SCH (11:49)
[2018-11-16] MEDS: MINOXIDIL PO SCH ×2 (11:50→21:43)
[2018-11-16] MEDS: FERROUS SULFATE PO SCH ×2 (11:50→21:42)
[2018-11-16] MEDS: ZEBETA PO SCH (11:51)
[2018-11-16] MEDS: PLAVIX PO SCH (11:51)
[2018-11-16] MEDS: ZOLOFT PO SCH (11:52)
[2018-11-16] MEDS: ROCEPHIN 1 GM in SODIUM CHLORIDE 50 ML IV SCH (11:52)
[2018-11-16] MEDS: MEVACOR PO SCH (17:48)
[2018-11-16] MEDS: FLOMAX PO SCH (21:42)
[2018-11-17] MEDS: ATIVAN IVP PRN (02:57)
--- NOTE | 2018-11-17 03:46 | PCM.PROG ---
Time of : 03:40 Preliminary Cause of : called to see the patient--no spontaneous pulses or respirations
--- NOTE | 2018-11-17 14:43 | DS ---
DATE OF SERVICE: 11/17/18 FINAL DIAGNOSIS: 1. Acute respiratory failure 2. Severe hypertension with hypertensive encephalopathy 3. Chronic kidney disease with acute renal failure at the end 4. Acute bronchitis with COPD with history of sleep apnea on BIPAP 5. Dementia 6. 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 Hypertension 8. LVH 9. Dyslipidemia 10.Carotid stenosis 11.Depression 12.Generalized osteoarthritis 13.Coronary artery disease 14.Diabetes mellitus HOSPITAL COURSE: 83 year old white male was hospitalized through the emergency room with complaint of shortness of breath, cough and severe hypertension. The patient went into acute respiratory failure with acute flash pulmonary edema with severe hypertension with severe hypertensive encephalopathy. The patient was successfully treated with aggressive diuretic therapy Morphine Sulfate. The patient was put on anti-hypertensive Cardene drip along with it. The patient's blood pressure was brought under control. The patient did not have any neurological deficit. The patient continued to have problems with his dementia along with his chronic lung disease with BIPAP constantly. His dementia had worsened because of hypertensive encephalopathy with aggressive diuretic therapy and severe hypertension the patient had suffered kidney insult and his chronic kidney disease had turned into acute renal failure. He was given slow IV fluids so that not to overload his cardiovascular system which we were able to do it but his overall status involving his cardiovascular system and lungs continued to deteriorate. The family decided to take him off BIPAP which was to make him go on. The patient was DNR at the end. The patient . TIME SPENT: More than 60 minutes. JEWEL
== END 2018-11-17 05:10 | disposition expired | DRG 291 ==
LOC: SCU 14:42
PROVIDERS: ADMIT Internal Medicine; ATTEND Internal Medicine
DX: I50.23 Acute on chronic systolic (congestive) heart failure (principal); J96.00 Acute respiratory failure, unspecified whether with hypoxia or hypercapnia; J18.9 Pneumonia, unspecified organism; N17.9 Acute kidney failure, unspecified; J81.0 Acute pulmonary edema; N18.9 Chronic kidney disease, unspecified; I25.10 Atherosclerotic heart disease of native coronary artery without angina pectoris; D64.9 Anemia, unspecified; E78.5 Hyperlipidemia, unspecified; E11.9 Type 2 diabetes mellitus without complications; M19.90 Unspecified osteoarthritis, unspecified site; K59.00 Constipation, unspecified; F41.9 Anxiety disorder, unspecified; F03.90 Unspecified dementia, unspecified severity, without behavioral disturbance, psychotic disturbance, mood disturbance, and anxiety; R05 Cough; R06.2 Wheezing; Z86.73 Personal history of transient ischemic attack (TIA), and cerebral infarction without residual deficits
CPT/HCPCS: 36415; 80053; 82803; 85007; 85025; 94640; 94660; 97802; 99306; 99309; 99316